=== PATIENT | female | born 1950 | race Caucasian/White ===

== ENCOUNTER 2017-04-23 22:52 | Emergency (ER) | payer MEDICARE, OTHER ==
[2017-04-23] MEDS ORDERED: methylPREDNISolone Sodium Succinate 125 MG/2 ML SDV ONE (22:56)
[2017-04-23] MEDS ORDERED: methylPREDNISolone Sodium Succinate 125 MG/2 ML SDV IVPUSH ONE (22:57)
[2017-04-23] MEDS ORDERED: diphenhydrAMINE 50 MG/ML SDV IVPUSH ONE (22:57)
[2017-04-23] MEDS ORDERED: Famotidine 20 MG/2 ML SDV IVPUSH ONE (22:58)
--- NOTE | 2017-04-23 23:36 | EDM.PDOC ---
ED HPI GENERAL MEDICAL PROBLEM - General Chief Complaint: Allergic Reaction Stated Complaint: Hives Time Seen by Provider: 04/23/17 23:05 Source of Information: Reports: Patient History Limitations: Reports: No Limitations - History of Present Illness INITIAL COMMENTS - FREE TEXT/NARRATIVE: 67 YO WF presents to ER with allergic rash with some mild difficulty swallowing. Pt reports she had 2 episodes in the last week which occurred after drinking crystal light. Pt denies any shortness of breath, tongue swelling, dizziness or palapatations. Onset: Today Onset Date: 04/21/17 Duration: Day(s): (3) Severity: Mild Worsens with: Reports: None Associated Symptoms: Reports: No Other Symptoms, Rash. Denies: Chest Pain, Cough, cough w sputum, Diaphoresis, Fever/Chills, Nausea/Vomiting, Shortness of Breath, Syncope - Related Data Allergies Allergy/AdvReac Type Severity Reaction Status Date / Time Sulfa (Sulfonamide Allergy Rash Verified 04/23/17 23:16 Antibiotics) sulfamethoxazole Allergy Rash Verified 04/23/17 23:16 [From Bactrim] Tetracyclines Allergy Difficulty Verified 04/23/17 23:16 Breathing trimethoprim [From Bactrim] Allergy Rash Verified 04/23/17 23:16 Home Meds: Home Meds Calcium Carbonate/Vitamin D3 [Os-Percy 500+D] 1 tab PO DAILY 07/26/15 [History] Diclofenac Sodium [Voltaren-XR] 100 mg PO DAILY 07/26/15 [History] Escitalopram [Lexapro] 20 mg PO DAILY 07/26/15 [History] Glucosamine/D3/Boswellia Janette [Osteo Bi-Flex Caplet] 1 tab PO DAILY 07/26/15 [ History] Metoprolol Tartrate [Lopressor] 25 mg PO BID PRN 07/26/15 [History] [place]-3 Fatty Acids [Fish Oil] 1,200 mg PO DAILY 07/26/15 [History] atorvaSTATin [Lipitor] 20 mg PO BEDTIME 07/26/15 [History] Cetirizine HCl [Zyrtec] 10 mg PO DAILY #30 tab.rapdis 04/23/17 [Rx] Famotidine [Pepcid] 20 mg PO BID #10 tablet 04/23/17 [Rx] Prednisone [IJD: predniSONE] 20 mg PO WITHBREAKFAST #10 tab 04/23/17 [Rx] Past Medical History HEENT History: Reports: Impaired Vision Gastrointestinal History: Reports: Cholelithiasis, GERD Genitourinary History: Reports: Other (See Below) Other Genitourinary History: cyst on right kidney Musculoskeletal History: Reports: Arthritis Psychiatric History: Reports: Depression Hematologic History: Reports: Anemia - Infectious Disease History Infectious Disease History: Reports: Chicken Pox, Measles, MRSA, Mumps, Rubella , Shingles - Past Surgical History HEENT Surgical History: Reports: Eye Surgery, Other (See Below) GI Surgical History: Reports: Appendectomy, Bariatric Procedure, Cholecystectomy Social & Family History - Tobacco Use Smoking Status *Q: Never Smoker - Recreational Drug Use Recreational Drug Use: No ED ROS ALLERGIC REACTION - Review of Systems Review Of Systems: See Below Constitutional: Reports: No Symptoms HEENT: Reports: Throat Pain Respiratory: Reports: No Symptoms Cardiovascular: Reports: No Symptoms Endocrine: Reports: No Symptoms GI/Abdominal: Reports: No Symptoms : Reports: No Symptoms Musculoskeletal: Reports: No Symptoms Skin: Reports: No Symptoms Neurological: Reports: No Symptoms Psychiatric: Reports: No Symptoms Hematologic/Lymphatic: Reports: No Symptoms Immunologic: Reports: No Symptoms ED EXAM GENERAL NO PERIP PULSE - Physical Exam Exam: See Below Exam Limited By: No Limitations General Appearance: Alert, WD/WN, No Apparent Distress Ears: Normal External Exam, Normal Canal, Hearing Grossly Normal, Normal TMs Nose: Normal Inspection, Normal Mucosa, No Blood Throat/Mouth: Normal Inspection, Normal Lips, Normal Teeth, Normal Gums, Normal Oropharynx, Normal Voice, No Airway Compromise Head: Atraumatic, Normocephalic Neck: Normal Inspection, Supple, Non-Tender, Full Range of Motion Respiratory/Chest: No Respiratory Distress, Lungs Clear, Normal Breath Sounds, No Accessory Muscle Use, Chest Non-Tender Cardiovascular: Normal Peripheral Pulses, Regular Rate, Rhythm, No Edema, No Gallop, No JVD, No Murmur, No Rub GI/Abdominal: Normal Bowel Sounds, Soft, Non-Tender, No Organomegaly, No Distention, No Abnormal Bruit, No Mass Back Exam: Normal Inspection, Full Range of Motion, NT Extremities: Normal Inspection, Normal Range of Motion, Non-Tender, Normal Capillary Refill, No Pedal Edema Neurological: Alert, Oriented, CN II-XII Intact, Normal Cognition, Normal Gait, Normal Reflexes, No Motor/Sensory Deficits Psychiatric: Normal Affect, Normal Mood Skin Exam: Warm, Dry, Intact, Normal Color, Rash (generalized urticarial rash) Lymphatic: No Adenopathy Course - Vital Signs Last Recorded V/S: Last Vital Signs Temp 36.1 C 04/23/17 23:10 Pulse 71 04/23/17 23:10 Resp 20 04/23/17 23:10 BP 122/59 L 04/23/17 23:10 Pulse Ox 98 04/23/17 23:10 - Orders/Labs/Meds Meds: Medications Discontinued Medications Generic Name Dose Route Start Last Admin Trade Name Neela PRN Reason Stop Dose Admin Diphenhydramine HCl 25 mg 04/23/17 22:57 04/23/17 23:02 Benadryl IVPUSH 04/23/17 22:58 25 mg ONETIME ONE Administration Famotidine 20 mg 04/23/17 22:58 04/23/17 23:05 Pepcid IVPUSH 04/23/17 22:59 20 mg ONETIME ONE Administration Methylprednisolone Sodium Succinate 125 mg 04/23/17 22:57 04/23/17 23:00 Solu-Medrol IVPUSH 04/23/17 22:58 125 mg ONETIME ONE Administration Methylprednisolone Sodium Succinate Confirm 04/23/17 22:56 04/23/17 23:02 Solu-Medrol Administered 04/23/17 22:57 Not Given Dose 125 mg .ROUTE .STK-MED ONE - Re-Assessments/Exams Free Text/Narrative Re-Assessment/Exam: 04/23/17 23:35 Pt reports rash fading, dysphagia resolved after solumedrol/pepcid/benadryl Departure - Departure Time of Disposition: 23:36 Disposition: Home, Self-Care 01 Condition: Good Clinical Impression: Allergic reaction Qualifiers: Encounter type: initial encounter Qualified Code(s): T78.40XA - Allergy, unspecified, initial encounter - Discharge Information Prescriptions: Cetirizine HCl [Zyrtec] 10 mg PO DAILY #30 tab.rapdis Famotidine [Pepcid] 20 mg PO BID #10 tablet Prednisone [IJD: predniSONE] 20 mg PO WITHBREAKFAST #10 tab Instructions: Allergies Referrals: Theron Monterroso MD [Primary Care Provider] - - Assessment/Plan Assessment:: 1. acute allergic reaction Plan: 1. discharge home 2. prednisone 60mg PO QD x 5 days 3. benadryl 50mg PO QHS 4. pepcid 20mg PO BID 5. zyrtec 10mg PO Qam
[2017-04-23 23:42] VITALS: BP 126/70
== END 2017-04-24 00:05 | disposition home or self-care (01) ==
LOC: KA.ED 22:52 → SUPCPDRO 22:52 → KA.ED 04-24 00:05
DX: L50.0 Allergic urticaria (principal); F32.9 Major depressive disorder, single episode, unspecified; Z86.2 Personal history of diseases of the blood and blood-forming organs and certain disorders involving the immune mechanism; Z79.899 Other long term (current) drug therapy; Z88.1 Allergy status to other antibiotic agents; Z88.2 Allergy status to sulfonamides
CPT/HCPCS: 96374; 96375; 99283; J1200; J2930; S0028

== ENCOUNTER 2017-12-01 13:42 | Emergency (ER) | payer MEDICARE, OTHER ==
[2017-12-01 14:15] VITALS: BP 114/66
[2017-12-01] MEDS: Lidocaine 1% 20 ML MDV ONE (14:16)
[2017-12-01] MEDS: Lidocaine 1% 10 ML MDV INJECT ONE (14:18)
--- NOTE | 2017-12-01 14:26 | EDM.PDOC ---
ED HPI GENERAL MEDICAL PROBLEM - General Chief Complaint: Upper Extremity Injury/Pain Stated Complaint: laceration to hand Time Seen by Provider: 12/01/17 14:00 Source of Information: Reports: Patient History Limitations: Reports: No Limitations - History of Present Illness INITIAL COMMENTS - FREE TEXT/NARRATIVE: 67 YO WF with 4cm laceration to palmar surface of left hand. Pt reports she accidentally cut her hand with a utility knife. Pt denies any loss of function to hand or fingers. Bleeding controlled. Pt had last tetanus 2 years ago. Onset: Today Onset Date: 12/01/17 Onset Time: 13:00 Location: Reports: Upper Extremity, Left Quality: Reports: Ache Severity: Mild Improves with: Reports: None Worsens with: Reports: None Associated Symptoms: Reports: No Other Symptoms Left Hand Pain Score (Numeric/FACES): 4 - Related Data Allergies Allergy/AdvReac Type Severity Reaction Status Date / Time Sulfa (Sulfonamide Allergy Rash Verified 12/01/17 13:50 Antibiotics) sulfamethoxazole Allergy Rash Verified 12/01/17 13:50 [From Bactrim] Tetracyclines Allergy Difficulty Verified 12/01/17 13:50 Breathing trimethoprim [From Bactrim] Allergy Rash Verified 12/01/17 13:50 Home Meds: Home Meds Calcium Carbonate/Vitamin D3 [Os-Percy 500+D] 1 tab PO DAILY 07/26/15 [History] Diclofenac Sodium [Voltaren-XR] 100 mg PO DAILY 07/26/15 [History] Glucosamine/D3/Boswellia Janette [Osteo Bi-Flex Caplet] 1 tab PO DAILY 07/26/15 [ History] Metoprolol Tartrate [Lopressor] 25 mg PO BID PRN 07/26/15 [History] [place]-3 Fatty Acids [Fish Oil] 1,200 mg PO DAILY 07/26/15 [History] atorvaSTATin [Lipitor] 20 mg PO DAILY 07/26/15 [History] Cephalexin [Keflex] 500 mg PO Q6HR #28 capsule 12/01/17 [Rx] Past Medical History HEENT History: Reports: Impaired Vision Cardiovascular History: Reports: Arrhythmia, Other (See Below) Other Cardiovascular History: prn po med for irr HR Gastrointestinal History: Reports: Cholelithiasis, GERD Genitourinary History: Reports: Other (See Below) Other Genitourinary History: cyst on right kidney Musculoskeletal History: Reports: Arthritis Psychiatric History: Reports: Depression Hematologic History: Reports: Anemia - Infectious Disease History Infectious Disease History: Reports: Chicken Pox, Measles, MRSA, Mumps, Rubella , Shingles - Past Surgical History HEENT Surgical History: Reports: Eye Surgery, Other (See Below) GI Surgical History: Reports: Appendectomy, Bariatric Procedure, Cholecystectomy Social & Family History - Caffeine Use Caffeine Use: Reports: None Review of Systems - Review of Systems Review Of Systems: See Below Constitutional: Reports: No Symptoms Eyes: Reports: No Symptoms Ears: Reports: No Symptoms Nose: Reports: No Symptoms Mouth/Throat: Reports: No Symptoms Respiratory: Reports: No Symptoms Cardiovascular: Reports: No Symptoms GI/Abdominal: Reports: No Symptoms Genitourinary: Reports: No Symptoms Musculoskeletal: Reports: No Symptoms Skin: Reports: Wound (4cm laceration to palmar surface of left hand) Neurological: Reports: No Symptoms Psychiatric: Reports: No Symptoms ED EXAM, GENERAL - Physical Exam Exam: See Below Exam Limited By: No Limitations General Appearance: Alert, WD/WN, No Apparent Distress Head: Atraumatic, Normocephalic Neck: Normal Inspection, Supple, Non-Tender, Full Range of Motion Respiratory/Chest: No Respiratory Distress, Lungs Clear, Normal Breath Sounds, No Accessory Muscle Use, Chest Non-Tender Cardiovascular: Normal Peripheral Pulses, Regular Rate, Rhythm, No Edema, No Gallop, No JVD, No Murmur, No Rub Back Exam: Normal Inspection, Full Range of Motion, NT Extremities: Normal Inspection, Normal Range of Motion, Non-Tender, Normal Capillary Refill, No Pedal Edema Neurological: Alert, Oriented, CN II-XII Intact, Normal Cognition, Normal Gait, Normal Reflexes, No Motor/Sensory Deficits Psychiatric: Normal Affect, Normal Mood Skin Exam: Wound/Incision (4cm laceration to palmar surface of left hand) Lymphatic: No Adenopathy ED TRAUMA EXTREMITY PROCEDURES - Laceration/Wound Repair Left Groin Lac/Wound Length In cm: 4 Appearance: Superficial Distal NVT: Neuro & Vascular Intact Anesthetic Type: Local Local Anesthesia - Lidocaine (Xylocaine): 1% Plain Local Anesthetic Volume: 1cc Skin Prep: Providone-Iodine (Betadine), Saline, Sterile Drape Closed With: Sutures Suture Size: 4-0 # of Sutures: 3 Sterile Dressing Applied: Provider Tetanus Status Addressed: Yes Complications: No Course - Vital Signs Last Recorded V/S: Last Vital Signs Temp 35.9 C 12/01/17 13:59 Pulse 69 12/01/17 13:59 Resp 18 12/01/17 13:59 BP 114/66 12/01/17 13:59 Pulse Ox Departure - Departure Time of Disposition: 14:30 Disposition: Home, Self-Care 01 Condition: Good Clinical Impression: Laceration of left hand Qualifiers: Encounter type: initial encounter Foreign body presence: without foreign body Qualified Code(s): S61.412A - Laceration without foreign body of left hand, initial encounter - Discharge Information Prescriptions: Cephalexin [Keflex] 500 mg PO Q6HR #28 capsule Instructions: Laceration Care, Adult, [id number], Stitches, Caitlin, or Adhesive Wound Closure Referrals: Theron Monterroso MD [Primary Care Provider] - Additional Instructions: 1. discharge home 2. wound care instructions given 3. remove sutures in 10-14 days 4. keflex 500mg PO Q6 x 7 days for prophylaxsis 5. return to ER for worsening symptoms - Assessment/Plan Assessment:: 1. 4cm laceration to palmar surface of left hand Plan: 1. discharge home 2. wound care instructions given 3. remove sutures in 10-14 days 4. keflex 500mg PO Q6 x 7 days for prophylaxsis 5. return to ER for worsening symptoms
[2017-12-01] MEDS: Lidocaine 1% 20 ML MDV INJECT ONE (15:18)
== END 2017-12-01 14:37 | disposition home or self-care (01) ==
LOC: KA.ED 13:42
DX: S61.412A Laceration without foreign body of left hand, initial encounter (principal); W26.0XXA Contact with knife, initial encounter
CPT/HCPCS: 12002; 99283

== ENCOUNTER 2018-06-26 00:55 | Emergency (ER) | payer MEDICARE, OTHER ==
[2018-06-26] MEDS: methylPREDNISolone Sodium Succinate 125 MG/2 ML SDV IVPUSH ONE (01:22)
--- NOTE | 2018-06-26 01:39 | EDM.PDOC ---
ED HPI GENERAL MEDICAL PROBLEM - General Chief Complaint: Allergic Reaction Stated Complaint: allergic reaction Time Seen by Provider: 06/26/18 01:21 Source of Information: Reports: Patient, Significant Other History Limitations: Reports: No Limitations - History of Present Illness INITIAL COMMENTS - FREE TEXT/NARRATIVE: Patient presents with apparent allergic reaction: redness and itching of both arms, abdomen, lateral torso, left ear. THis started 6 hours ago and she took Benadryl 50 mg twice before coming to ER. It is still slowly spreading. She denies any throat swelling or dyspnea but her lips feel puffy. She had a similar episode in Apr 2017 and came to ER and was given Solumedrol and Pepcid ( from ER notes). She says that the redness took a couple days to completely resolve then. She has never identified the cause and can't think of anything new she might have eaten or anything else that could have caused this. - Related Data Allergies Allergy/AdvReac Type Severity Reaction Status Date / Time Sulfa (Sulfonamide Allergy Rash Verified 12/01/17 13:50 Antibiotics) sulfamethoxazole Allergy Rash Verified 12/01/17 13:50 [From Bactrim] Tetracyclines Allergy Difficulty Verified 12/01/17 13:50 Breathing trimethoprim [From Bactrim] Allergy Rash Verified 12/01/17 13:50 Home Meds: Home Meds Calcium Carbonate/Vitamin D3 [Os-Percy 500+D] 1 tab PO DAILY 07/26/15 [History] Diclofenac Sodium [Voltaren-XR] 100 mg PO DAILY 07/26/15 [History] Glucosamine/D3/Boswellia Janette [Osteo Bi-Flex Caplet] 1 tab PO DAILY 07/26/15 [ History] Metoprolol Tartrate [Lopressor] 25 mg PO BID PRN 07/26/15 [History] [place]-3 Fatty Acids [Fish Oil] 1,200 mg PO DAILY 07/26/15 [History] atorvaSTATin [Lipitor] 20 mg PO DAILY 07/26/15 [History] Cephalexin [Keflex] 500 mg PO Q6HR #28 capsule 12/01/17 [Rx] Past Medical History HEENT History: Reports: Impaired Vision Cardiovascular History: Reports: Arrhythmia, Other (See Below) Other Cardiovascular History: prn po med for irr HR Gastrointestinal History: Reports: Cholelithiasis, GERD Genitourinary History: Reports: Other (See Below) Other Genitourinary History: cyst on right kidney Musculoskeletal History: Reports: Arthritis Psychiatric History: Reports: Depression Hematologic History: Reports: Anemia - Infectious Disease History Infectious Disease History: Reports: Chicken Pox, Measles, MRSA, Mumps, Rubella , Shingles - Past Surgical History HEENT Surgical History: Reports: Eye Surgery, Other (See Below) GI Surgical History: Reports: Appendectomy, Bariatric Procedure, Cholecystectomy Social & Family History - Family History Family Medical History: Noncontributory - Caffeine Use Caffeine Use: Reports: None ED ROS ALLERGIC REACTION - Review of Systems Review Of Systems: See Below Constitutional: Denies: Fever, Chills, Malaise, Weakness HEENT: Denies: Throat Pain, Throat Swelling, Vision Change Respiratory: Denies: Shortness of Breath, Cough Cardiovascular: Denies: Chest Pain, Edema, Lightheadedness, Syncope Endocrine: Denies: Fatigue (even after all the benadryl) GI/Abdominal: Reports: Nausea. Denies: Abdominal Pain, Difficulty Swallowing, Vomiting : Reports: No Symptoms Musculoskeletal: Reports: No Symptoms Skin: Reports: Pruritis, Erythema. Denies: Cyanosis, Jaundice, Mottled, Pallor , Diaphoresis Neurological: Denies: Confusion, Dizziness, Headache, Seizure, Syncope, Weakness Psychiatric: Denies: Agitation, Anxiety, Confusion Immunologic: Denies: Anaphylaxis ED EXAM GENERAL NO PERIP PULSE - Physical Exam Exam: See Below Exam Limited By: No Limitations General Appearance: Alert, WD/WN, No Apparent Distress Eye Exam: Bilateral Eye: EOMI, Normal Inspection, PERRL Ears: Hearing Grossly Normal, Other (left external is erythematous) Nose: Normal Inspection, No Blood Throat/Mouth: Normal Teeth, Normal Gums, Normal Oropharynx, Normal Voice, No Airway Compromise, Other (subjective puffiness of lips). No: Perioral Cyanosis Head: Atraumatic, Normocephalic Neck: Normal Inspection, Full Range of Motion Respiratory/Chest: No Respiratory Distress, Lungs Clear, Normal Breath Sounds, No Accessory Muscle Use Cardiovascular: Regular Rate, Rhythm, No Murmur GI/Abdominal: No Distention Neurological: Alert, Oriented, Normal Cognition, No Motor/Sensory Deficits Psychiatric: Normal Affect, Normal Mood Skin Exam: Warm, Dry, Intact, Rash (inner prox forearms, abdomen, mid lumbar; legs, neck and face okay) Course - Orders/Labs/Meds Orders: Active Orders 24 hr Category Date Time Status Famotidine [Pepcid] Med 06/26/18 01:28 Once 20 mg IVPUSH ONETIME ONE Medication Orders Famotidine (Pepcid) 20 mg IVPUSH ONETIME ONE Stop: 06/26/18 01:29 Meds: Medications Generic Name Dose Route Start Last Admin Trade Name Freq PRN Reason Stop Dose Admin Famotidine 20 mg 06/26/18 01:28 Pepcid IVPUSH 06/26/18 01:29 ONETIME ONE Discontinued Medications Generic Name Dose Route Start Last Admin Trade Name Freq PRN Reason Stop Dose Admin Epinephrine HCl 0.5 mg 06/26/18 01:11 Adrenalin SUBCUT 06/26/18 01:12 ONETIME ONE Methylprednisolone Sodium Succinate 125 mg 06/26/18 01:10 06/26/18 01:22 Solu-Medrol IVPUSH 06/26/18 01:11 125 mg ONETIME ONE Administration - Re-Assessments/Exams Free Text/Narrative Re-Assessment/Exam: 06/26/18 02:20 The rash and itch have subsided noticeably since the Solu-medrol and Pepcid were given. Patient would like to go home. will drive. We discussed findings and expectations along with treatment plan. Pt discharged to home in stable condition. Departure - Departure Time of Disposition: 02:15 Disposition: Home, Self-Care 01 Condition: Good Clinical Impression: Allergic reaction, urticaria - Discharge Information Additional Instructions: 1. Drink 8 cups of water a day. 2. Take the prednisone as directed. 3. Follow up with your PCP if problems persist or worsen. 4. Return to ER if needed. - My Orders Last 24 Hours: My Active Orders 06/26/18 01:28 Famotidine [Pepcid] 20 mg IVPUSH ONETIME ONE - Assessment/Plan Last 24 Hours: My Active Orders 06/26/18 01:28 Famotidine [Pepcid] 20 mg IVPUSH ONETIME ONE
[2018-06-26] MEDS: Famotidine 20 MG/2 ML SDV IVPUSH ONE (01:40)
[2018-06-26] MEDS: EPINEPHrine 1 MG/ML SDV SUBCUT ONE (02:05)
[2018-06-26 02:42] VITALS: BP 109/60
== END 2018-06-26 02:25 | disposition home or self-care (01) ==
LOC: KA.ED 00:55
DX: L50.0 Allergic urticaria (principal); F32.9 Major depressive disorder, single episode, unspecified; Z79.899 Other long term (current) drug therapy; Z88.2 Allergy status to sulfonamides; Z88.1 Allergy status to other antibiotic agents
CPT/HCPCS: 96374; 96375; 99283; J2930; J3490

== ENCOUNTER 2019-04-02 | Emergency (ER) | payer MEDICARE, OTHER ==
[2019-04-02] MEDS ORDERED: Famotidine 20 MG/2 ML SDV IVPUSH ONE (00:02)
[2019-04-02] MEDS ORDERED: methylPREDNISolone Sodium Succinate 125 MG/2 ML SDV IVPUSH ONE (00:02)
[2019-04-02] MEDS ORDERED: diphenhydrAMINE 50 MG/ML SDV IVPUSH ONE (00:02)
[2019-04-02] MEDS: Sodium Chloride 0.9% 10 ML Syringe FLUSH PRN ×3 (00:05→00:15)
--- NOTE | 2019-04-02 00:08 | EDM.PDOC ---
ED HPI GENERAL MEDICAL PROBLEM - General Chief Complaint: Allergic Reaction Stated Complaint: allergic reaction Time Seen by Provider: 04/02/19 00:02 Source of Information: Reports: Patient History Limitations: Reports: No Limitations - History of Present Illness INITIAL COMMENTS - FREE TEXT/NARRATIVE: 69 YO WF presents to ER with sudden onset of rash with sore throat and lightheadedness which began at 10pm tonight. Pt with PMH of idiopathic urticaria. Pt denies any new medication/food or environmental exposures. Pt denies shortness of breath, chest pain, palpitations or diaphoresis. Pt afebrile without URI symptoms. Pt denies dysphagia, nausea/vomiting or syncope. Pt has had similar episodes in the past but denies seeing an jewelry racker or specialist for her recurrent symptoms. Onset Date: 04/01/19 Onset Time: 22:00 Location: Reports: Chest, Back, Upper Extremity, Left, Upper Extremity, Right Quality: Reports: Other (itchy) Severity: Mild Improves with: Reports: None Worsens with: Reports: None Associated Symptoms: Reports: No Other Symptoms, Shortness of Breath - Related Data Allergies Allergy/AdvReac Type Severity Reaction Status Date / Time Sulfa (Sulfonamide Allergy Rash Verified 04/02/19 00:21 Antibiotics) sulfamethoxazole Allergy Rash Verified 04/02/19 00:21 [From Bactrim] Tetracyclines Allergy Difficulty Verified 04/02/19 00:21 Breathing trimethoprim [From Bactrim] Allergy Rash Verified 04/02/19 00:21 Home Meds: Home Meds Calcium Carbonate/Vitamin D3 [Os-Percy 500+D] 1 tab PO DAILY 07/26/15 [History] Diclofenac Sodium [Voltaren-XR] 100 mg PO DAILY 07/26/15 [History] Glucosamine/D3/Boswellia Janette [Osteo Bi-Flex Caplet] 1 tab PO DAILY 07/26/15 [ History] Metoprolol Tartrate [Lopressor] 25 mg PO BID PRN 07/26/15 [History] [place]-3 Fatty Acids [Fish Oil] 1,200 mg PO DAILY 07/26/15 [History] atorvaSTATin [Lipitor] 20 mg PO DAILY 07/26/15 [History] Venlafaxine HCl [Venlafaxine ER] 75 mg PO DAILY 06/26/18 [History] Vit A/Vit C/Vit E/Zinc/Copper [Preservision Areds Softgel] 1 tab PO DAILY [History] Famotidine [Pepcid] 20 mg PO BID #20 tab 04/02/19 [Rx] predniSONE [Prednisone] 50 mg PO DAILY #5 tablet 04/02/19 [Rx] Past Medical History HEENT History: Reports: Impaired Vision Cardiovascular History: Reports: Arrhythmia, Other (See Below) Other Cardiovascular History: prn po med for irr HR Gastrointestinal History: Reports: Cholelithiasis, GERD Genitourinary History: Reports: Other (See Below) Other Genitourinary History: cyst on right kidney Musculoskeletal History: Reports: Arthritis Psychiatric History: Reports: Depression Hematologic History: Reports: Anemia - Infectious Disease History Infectious Disease History: Reports: Chicken Pox, Measles, MRSA, Mumps, Rubella , Shingles - Past Surgical History HEENT Surgical History: Reports: Eye Surgery, Other (See Below) GI Surgical History: Reports: Appendectomy, Bariatric Procedure, Cholecystectomy Social & Family History - Family History Family Medical History: Noncontributory - Caffeine Use Caffeine Use: Reports: None ED ROS ALLERGIC REACTION - Review of Systems Review Of Systems: See Below Constitutional: Reports: No Symptoms HEENT: Reports: No Symptoms Respiratory: Reports: No Symptoms Cardiovascular: Reports: No Symptoms Endocrine: Reports: No Symptoms GI/Abdominal: Reports: No Symptoms : Reports: No Symptoms Musculoskeletal: Reports: No Symptoms Skin: Reports: Rash Neurological: Reports: Dizziness Psychiatric: Reports: No Symptoms Hematologic/Lymphatic: Reports: No Symptoms Immunologic: Reports: Seasonal Allergy ED EXAM GENERAL NO PERIP PULSE - Physical Exam Exam: See Below Exam Limited By: No Limitations General Appearance: Alert, WD/WN, No Apparent Distress Nose: Normal Inspection, Normal Mucosa, No Blood Throat/Mouth: Normal Inspection, Normal Lips, Normal Teeth, Normal Gums, Normal Oropharynx, Normal Voice, No Airway Compromise Head: Atraumatic, Normocephalic Neck: Normal Inspection, Supple, Non-Tender, Full Range of Motion Respiratory/Chest: No Respiratory Distress, Lungs Clear, Normal Breath Sounds, No Accessory Muscle Use, Chest Non-Tender Cardiovascular: Normal Peripheral Pulses, Regular Rate, Rhythm, No Edema, No Gallop, No JVD, No Murmur, No Rub GI/Abdominal: Normal Bowel Sounds, Soft, Non-Tender, No Organomegaly, No Distention, No Abnormal Bruit, No Mass Back Exam: Normal Inspection, Full Range of Motion, NT Extremities: Normal Inspection, Normal Range of Motion, Non-Tender, Normal Capillary Refill, No Pedal Edema Neurological: Alert, Oriented, CN II-XII Intact, Normal Cognition, Normal Gait, Normal Reflexes, No Motor/Sensory Deficits Psychiatric: Normal Affect, Normal Mood Skin Exam: Rash (macular-papular rash affecting the chest/back and upper extremities. ) Lymphatic: No Adenopathy Course - Vital Signs Last Recorded V/S: Last Vital Signs Temp 36.1 C 04/02/19 00:10 Pulse 75 04/02/19 00:10 Resp 16 04/02/19 00:10 BP 127/71 04/02/19 00:10 Pulse Ox 99 04/02/19 00:10 - Orders/Labs/Meds Orders: Active Orders 24 hr Category Date Time Status Saline Lock Insert [OM.PC] Routine Oth 04/02/19 00:05 Ordered Meds: Medications Discontinued Medications Generic Name Dose Route Start Last Admin Trade Name Wesq PRN Reason Stop Dose Admin Diphenhydramine HCl 25 mg 04/02/19 00:02 04/02/19 00:10 Benadryl IVPUSH 04/02/19 00:03 25 mg ONETIME ONE Administration Famotidine 20 mg 04/02/19 00:02 04/02/19 00:15 Pepcid IVPUSH 04/02/19 00:03 20 mg ONETIME ONE Administration Methylprednisolone Sodium Succinate 125 mg 04/02/19 00:02 04/02/19 00:08 Solu-Medrol IVPUSH 04/02/19 00:03 125 mg ONETIME ONE Administration Sodium Chloride 10 ml 04/02/19 00:05 04/02/19 00:15 Saline Flush FLUSH 10 ml Q8HR PRN Administration keep vein open Departure - Departure Time of Disposition: 11:00 Disposition: Home, Self-Care 01 Condition: Good Clinical Impression: Allergic reaction Qualifiers: Encounter type: initial encounter Qualified Code(s): T78.40XA - Allergy, unspecified, initial encounter - Discharge Information Prescriptions: Famotidine [Pepcid] 20 mg PO BID #20 tab predniSONE [Prednisone] 50 mg PO DAILY #5 tablet Instructions: Allergies, Adult, [id number], Allergy Skin Testing Referrals: Debbie Joyce PA-C [Primary Care Provider] - Forms: ED Department Discharge Additional Instructions: 1. discharge home 2. Benadryl 50mg every 6 hours x 5 days 3. prednisone 50mg everyday x 5 days 4. pepcid 20mg twice per day x 10 days 5. follow up with PCP and consider electrician apprentice for further evaluation and treatment 6. return to ER for worsening symptoms - My Orders Last 24 Hours: My Active Orders 04/02/19 00:05 Saline Lock Insert [OM.PC] Routine - Assessment/Plan Last 24 Hours: My Active Orders 04/02/19 00:05 Saline Lock Insert [OM.PC] Routine Assessment:: 1. acute allergic reaction Plan: 1. discharge home 2. Benadryl 50mg every 6 hours x 5 days 3. prednisone 50mg everyday x 5 days 4. pepcid 20mg twice per day x 10 days 5. follow up with PCP and consider electrician apprentice for further evaluation and treatment 6. return to ER for worsening symptoms
[2019-04-02 00:25] VITALS: BP 127/71; PULSE 75
== END 2019-04-02 00:50 | disposition home or self-care (01) ==
LOC: KA.ED
DX: T78.40XA Allergy, unspecified, initial encounter (principal); F32.9 Major depressive disorder, single episode, unspecified; Z79.899 Other long term (current) drug therapy; Z88.1 Allergy status to other antibiotic agents; Z88.2 Allergy status to sulfonamides
CPT/HCPCS: 96374; 96375; 99284-25; J1200; J2930; J3490

== ENCOUNTER 2019-07-31 23:46 | Emergency (ER) | payer MEDICARE, OTHER ==
[2019-07-31 23:51] VITALS: PULSE 84
[2019-08-01] MEDS ORDERED: Sodium Chloride 0.9% 10 ML Syringe FLUSH PRN (00:08)
[2019-08-01] MEDS ORDERED: Famotidine 20 MG/2 ML SDV IVPUSH ONE (00:17)
[2019-08-01] MEDS ORDERED: methylPREDNISolone Sodium Succinate 125 MG/2 ML SDV IVPUSH ONE (00:17)
[2019-08-01] MEDS ORDERED: diphenhydrAMINE 50 MG/ML SDV IVPUSH ONE (00:17)
--- NOTE | 2019-08-01 00:19 | EDM.PDOC ---
ED HPI GENERAL MEDICAL PROBLEM - General Chief Complaint: Allergic Reaction Stated Complaint: Rash Time Seen by Provider: 08/01/19 00:05 Source of Information: Reports: Patient History Limitations: Reports: No Limitations - History of Present Illness INITIAL COMMENTS - FREE TEXT/NARRATIVE: 69 YO WF presents to ER complaining of generalized rash which began at 9pm. Pt reports history of similar in the past. Pt states she has been treated for the same on 3 other occasions and been seen by an retail visual merchandiser who was unable to tell her the cause or offending agent. Pt denies shortness of breath or difficulty swallowing. Pt states she was getting ready for bed when the rash started. She describes her rash as "hives" located in the folds of her arms, back of legs, under breasts, in groin and around her neck but has spread to her torso and back. Pt reports she took Benadryl at home without improvement. Pt denies dizziness or diaphoresis. No new food contacts, no new soaps or detergents or lotions, perfumes. Pt reports she started amoxicillin last week for a tooth infection. Location: Reports: Generalized Quality: Reports: Other (itchy) Improves with: Reports: None Worsens with: Reports: None Associated Symptoms: Reports: No Other Symptoms, Rash. Denies: Chest Pain, Diaphoresis, Fever/Chills, Nausea/Vomiting, Shortness of Breath Generalized Pain Score (Numeric/FACES): 5 - Related Data Allergies Allergy/AdvReac Type Severity Reaction Status Date / Time Sulfa (Sulfonamide Allergy Rash Verified 08/01/19 00:08 Antibiotics) sulfamethoxazole Allergy Rash Verified 08/01/19 00:08 [From Bactrim] Tetracyclines Allergy Difficulty Verified 08/01/19 00:08 Breathing trimethoprim [From Bactrim] Allergy Rash Verified 08/01/19 00:08 Home Meds: Home Meds Calcium Carbonate/Vitamin D3 [Os-Percy 500+D] 1 tab PO DAILY 07/26/15 [History] Diclofenac Sodium [Voltaren-XR] 100 mg PO DAILY 07/26/15 [History] Glucosamine/D3/Boswellia Janette [Osteo Bi-Flex Caplet] 1 tab PO DAILY 07/26/15 [ History] Metoprolol Tartrate [Lopressor] 25 mg PO BID PRN 07/26/15 [History] [place]-3 Fatty Acids [Fish Oil] 1,200 mg PO DAILY 07/26/15 [History] atorvaSTATin [Lipitor] 20 mg PO DAILY 07/26/15 [History] Venlafaxine HCl [Venlafaxine ER] 75 mg PO DAILY 06/26/18 [History] Vit A/Vit C/Vit E/Zinc/Copper [Preservision Areds Softgel] 1 tab PO DAILY [History] Famotidine [Pepcid] 20 mg PO BID #20 tab 04/02/19 [Rx] predniSONE [Prednisone] 50 mg PO DAILY #5 tablet 04/02/19 [Rx] Famotidine [Pepcid] 20 mg PO BID #20 tab 08/01/19 [Rx] predniSONE [Prednisone] 20 mg PO DAILY #15 tablet 08/01/19 [Rx] Past Medical History HEENT History: Reports: Impaired Vision Cardiovascular History: Reports: Arrhythmia, Other (See Below) Other Cardiovascular History: prn po med for irr HR Gastrointestinal History: Reports: Cholelithiasis, GERD Genitourinary History: Reports: Other (See Below) Other Genitourinary History: cyst on right kidney Musculoskeletal History: Reports: Arthritis Psychiatric History: Reports: Depression Hematologic History: Reports: Anemia - Infectious Disease History Infectious Disease History: Reports: Chicken Pox, Measles, MRSA, Mumps, Rubella , Shingles - Past Surgical History HEENT Surgical History: Reports: Eye Surgery, Other (See Below) GI Surgical History: Reports: Appendectomy, Bariatric Procedure, Cholecystectomy Social & Family History - Family History Family Medical History: Noncontributory - Tobacco Use Smoking Status *Q: Never Smoker Second Hand Smoke Exposure: No - Caffeine Use Caffeine Use: Reports: Coffee - Recreational Drug Use Recreational Drug Use: No ED ROS ALLERGIC REACTION - Review of Systems Review Of Systems: See Below Constitutional: Reports: No Symptoms HEENT: Reports: No Symptoms Respiratory: Reports: No Symptoms Cardiovascular: Reports: No Symptoms Endocrine: Reports: No Symptoms GI/Abdominal: Reports: No Symptoms : Reports: No Symptoms Musculoskeletal: Reports: No Symptoms Skin: Reports: Rash Neurological: Reports: No Symptoms Psychiatric: Reports: Anxiety Hematologic/Lymphatic: Reports: No Symptoms Immunologic: Reports: No Symptoms ED EXAM GENERAL NO PERIP PULSE - Physical Exam Exam: See Below Exam Limited By: No Limitations General Appearance: Alert, WD/WN, No Apparent Distress Eye Exam: Bilateral Eye: PERRL Throat/Mouth: Normal Inspection, Normal Lips, Normal Teeth, Normal Gums, Normal Oropharynx, Normal Voice, No Airway Compromise Head: Atraumatic, Normocephalic Neck: Normal Inspection, Supple, Non-Tender, Full Range of Motion Respiratory/Chest: No Respiratory Distress, Lungs Clear, Normal Breath Sounds, No Accessory Muscle Use, Chest Non-Tender Cardiovascular: Normal Peripheral Pulses, Regular Rate, Rhythm, No Edema, No Gallop, No JVD, No Murmur, No Rub GI/Abdominal: Normal Bowel Sounds, Soft, Non-Tender, No Organomegaly, No Distention, No Abnormal Bruit, No Mass Back Exam: Normal Inspection, Full Range of Motion, NT Extremities: Normal Inspection, Normal Range of Motion, Non-Tender, Normal Capillary Refill, No Pedal Edema Neurological: Alert, Oriented, CN II-XII Intact, Normal Cognition, Normal Gait, Normal Reflexes, No Motor/Sensory Deficits Psychiatric: Normal Affect, Normal Mood Skin Exam: Warm, Dry, Intact, Rash (maculoapapular rash- generalized) Lymphatic: No Adenopathy Course - Vital Signs Last Recorded V/S: Last Vital Signs Temp 36.1 C 07/31/19 23:47 Pulse 84 07/31/19 23:47 Resp 18 07/31/19 23:47 BP 147/80 H 07/31/19 23:47 Pulse Ox 97 07/31/19 23:47 - Orders/Labs/Meds Orders: Active Orders 24 hr Category Date Time Status Peripheral IV Care [RC] . DIRECTED Care 08/01/19 00:09 Active Sodium Chloride 0.9% [Saline Flush] Med 08/01/19 00:08 Active 10 ml FLUSH Q8HR PRN Peripheral IV Insertion Adult [OM.PC] Routine Oth 08/01/19 00:08 Ordered Medication Orders Sodium Chloride (Saline Flush) 10 ml FLUSH Q8HR PRN PRN Reason: keep vein open Meds: Medications Generic Name Dose Route Start Last Admin Trade Name Freq PRN Reason Stop Dose Admin Sodium Chloride 10 ml 08/01/19 00:08 Saline Flush FLUSH Q8HR PRN keep vein open Discontinued Medications Generic Name Dose Route Start Last Admin Trade Name Freq PRN Reason Stop Dose Admin Diphenhydramine HCl 25 mg 08/01/19 00:17 Benadryl IVPUSH 08/01/19 00:18 ONETIME ONE Famotidine 20 mg 08/01/19 00:17 Pepcid IVPUSH 08/01/19 00:18 ONETIME ONE Methylprednisolone Sodium Succinate 125 mg 08/01/19 00:17 Solu-Medrol IVPUSH 08/01/19 00:18 ONETIME ONE - Radiology Interpretation Free Text/Narrative:: Pt reports she is feeling better, less itchy and the rash is fading. Pt still denies shortness of breath, lightheadedness, chest tightness, nausea/vomiting or difficulty swallowing. Departure - Departure Time of Disposition: 00:48 Disposition: Home, Self-Care 01 Condition: Good Clinical Impression: Allergic reaction Qualifiers: Encounter type: subsequent encounter Qualified Code(s): T78.40XD - Allergy, unspecified, subsequent encounter - Discharge Information Prescriptions: Famotidine [Pepcid] 20 mg PO BID #20 tab predniSONE [Prednisone] 20 mg PO DAILY #15 tablet Instructions: Allergies, Adult, [id number] Referrals: Theron Monterroso MD [Physician] - Forms: ED Department Discharge Additional Instructions: 1. discharge home 2. Benadryl 50mg every 6 hours 3. prednisone 60mg every day x 5 days 4. Pepcid 20mg every day x 5 days 5. stop amoxicillin 6. follow up with PCP next week for recheck 7. return to ER for worsening symptoms Sepsis Event Note - Evaluation Sepsis Screening Result: No Definite Risk - Focused Exam Vital Signs: Vital Signs Temp Pulse Resp BP Pulse Ox 07/31/19 23:47 36.1 C 84 18 147/80 H 97 Date Exam was Performed: 08/01/19 Time Exam was Performed: 00:24 - My Orders Last 24 Hours: My Active Orders 08/01/19 00:08 Sodium Chloride 0.9% [Saline Flush] 10 ml FLUSH Q8HR PRN Peripheral IV Insertion Adult [OM.PC] Routine 08/01/19 00:09 Peripheral IV Care [RC] . DIRECTED - Assessment/Plan Last 24 Hours: My Active Orders 08/01/19 00:08 Sodium Chloride 0.9% [Saline Flush] 10 ml FLUSH Q8HR PRN Peripheral IV Insertion Adult [OM.PC] Routine 08/01/19 00:09 Peripheral IV Care [RC] . DIRECTED Assessment:: 1. Allergic reaction- improved Plan: 1. discharge home 2. Benadryl 50mg every 6 hours 3. prednisone 60mg every day x 5 days 4. Pepcid 20mg every day x 5 days 5. stop amoxicillin 6. follow up with PCP next week for recheck 7. return to ER for worsening symptoms
[2019-08-01] MEDS ORDERED: Famotidine 20 MG Tab PO ONE (00:35)
[2019-08-01] MEDS ORDERED: predniSONE 20 MG Tab PO ONE (00:35)
[2019-08-01 01:07] VITALS: BP 142/76
== END 2019-08-01 01:00 | disposition home or self-care (01) ==
LOC: KA.ED 23:46
DX: T78.40XA Allergy, unspecified, initial encounter (principal); F32.9 Major depressive disorder, single episode, unspecified; Z88.2 Allergy status to sulfonamides; Z88.1 Allergy status to other antibiotic agents; Z79.899 Other long term (current) drug therapy
CPT/HCPCS: 96374; 96375; 99282; 99283; A9270; J1200; J2930; J3490

== ENCOUNTER 2020-05-04 15:35 | Observation (INO) | payer MEDICARE, OTHER ==
[2020-05-04] MEDS ORDERED: Sodium Chloride 0.9% 10 ML Syringe FLUSH PRN (15:49)
[2020-05-04] MEDS ORDERED: Sodium Chloride 0.9% 1,000 ML IV ONE (15:49)
--- NOTE | 2020-05-04 15:51 | EDM.PDOC ---
ED HPI GENERAL MEDICAL PROBLEM - General Chief Complaint: Neurological Problem Stated Complaint: S/P BACK PAIN Time Seen by Provider: 05/04/20 15:50 Source of Information: Reports: Patient, Family History Limitations: Reports: Altered Mental Status - History of Present Illness INITIAL COMMENTS - FREE TEXT/NARRATIVE: 70 YO WF PRESENTS TO ER BY PRIVATE CAR WITH CONFUSION WHICH BEGAN EARLIER TODAY. PER PT HAD SPINAL FUSION ON 04/27/2020 AND HAS BEEN HAVING A LOT OF PAIN SINCE HER PROCEDURE. PT WAS SENT HOME ON OXYCODONE/TIZANIDINE FOR PAIN CONTROL. PT HAS BEEN HAVING DIFFICULTY WITH BOWEL MOVEMENTS OVER THE LAST 3 DAYS. PT DENIES HEADACHE OR NECK PAIN. PT WITHOUT FEVER/CHILLS, NO NAUSEA/VOMITING, NO CHEST PAIN OR SHORTNESS OF BREATH. PT ABLE TO AMBULATE SLOWLY FROM CAR TO STRETCHER. Onset: Today Location: Reports: Generalized Severity: Mild Improves with: Reports: None Worsens with: Reports: None Associated Symptoms: Reports: Confusion. Denies: Chest Pain, Cough, cough w sputum, Fever/Chills, Headaches, Nausea/Vomiting, Shortness of Breath Lower Back Pain Score (Numeric/FACES): 10 - Related Data Allergies Allergy/AdvReac Type Severity Reaction Status Date / Time Sulfa (Sulfonamide Allergy Rash Verified 05/04/20 16:16 Antibiotics) sulfamethoxazole Allergy Rash Verified 05/04/20 16:16 [From Bactrim] Tetracyclines Allergy Difficulty Verified 05/04/20 16:16 Breathing trimethoprim [From Bactrim] Allergy Rash Verified 05/04/20 16:16 Home Meds: Home Meds Metoprolol Tartrate [Lopressor] 25 mg PO BID PRN 07/26/15 [History] atorvaSTATin [Lipitor] 10 mg PO DAILY 07/26/15 [History] Venlafaxine HCl [Venlafaxine ER] 75 mg PO DAILY 06/26/18 [History] Acetaminophen [Tylenol Arthritis Pain] 650 mg PO Q6H PRN 05/04/20 [History] Ascorbic Acid [C-500] 500 mg PO DAILY 05/04/20 [History] Cholecalciferol (Vitamin D3) [Vitamin D3] 2,000 unit PO DAILY 05/04/20 [History] Cyanocobalamin (Vitamin B-12) [Vitamin B-12] 1,000 mcg IM ASDIRECTED 05/04/20 [History] Cyclobenzaprine HCl 10 mg PO TID PRN 05/04/20 [History] Multivitamin [Multivitamins] 1 tab PO BID 05/04/20 [History] Loring-3S/DHA/Epa/Fish Oil [Loring-3 Fish Oil 1,000 mg Sfgl] 3 each PO BID 05/04/20 [History] miSOPROStoL [Misoprostol] 200 mcg PO DAILY 05/04/20 [History] oxyCODONE HCl [Oxycodone HCl] 5 - 10 mg PO Q4H PRN 05/04/20 [History] tiZANidine HCl [Tizanidine HCl] 2 mg PO TID 05/04/20 [History] Past Medical History HEENT History: Reports: Impaired Vision Cardiovascular History: Reports: Arrhythmia, Other (See Below) Other Cardiovascular History: prn po med for irr HR Gastrointestinal History: Reports: Cholelithiasis, GERD Genitourinary History: Reports: Other (See Below) Other Genitourinary History: cyst on right kidney Musculoskeletal History: Reports: Arthritis Psychiatric History: Reports: Depression Hematologic History: Reports: Anemia - Infectious Disease History Infectious Disease History: Reports: Chicken Pox, Measles, MRSA, Mumps, Rubella, Shingles - Past Surgical History HEENT Surgical History: Reports: Eye Surgery, Other (See Below) GI Surgical History: Reports: Appendectomy, Bariatric Procedure, Cholecystectomy Social & Family History - Family History Family Medical History: No Pertinent Family History - Caffeine Use Caffeine Use: Reports: Coffee ED ROS GENERAL - Review of Systems Review Of Systems: See Below Constitutional: Reports: No Symptoms. Denies: Fever, Chills, Malaise, Weakness, Diaphoresis Respiratory: Reports: No Symptoms Cardiovascular: Reports: No Symptoms Endocrine: Reports: No Symptoms GI/Abdominal: Reports: No Symptoms : Reports: No Symptoms Musculoskeletal: Reports: No Symptoms Skin: Reports: No Symptoms Neurological: Reports: Confusion. Denies: Headache, Numbness, Paresthesia, Pre- Existing Deficit, Trouble Speaking, Difficulty Walking, Gait Disturbance Psychiatric: Reports: No Symptoms Hematologic/Lymphatic: Reports: No Symptoms Immunologic: Reports: No Symptoms - Physical Exam Exam: See Below Exam Limited By: Altered Mental Status General Appearance: Alert, Anxious Eye Exam: Bilateral Eye: EOMI, PERRL Throat/Mouth: Normal Inspection, Normal Lips, Normal Teeth, Normal Gums, Normal Oropharynx, Normal Voice, No Airway Compromise Head Exam: Atraumatic, Normocephalic Neck: Normal Inspection, Supple, Non-Tender, Full Range of Motion Respiratory/Chest: No Respiratory Distress, Lungs Clear, Normal Breath Sounds, No Accessory Muscle Use, Chest Non-Tender Cardiovascular: Normal Peripheral Pulses, Regular Rate, Rhythm, No Edema, No Gallop, No JVD, No Murmur, No Rub GI/Abdominal: Normal Bowel Sounds, Soft, Non-Tender, No Organomegaly, No Distention, No Abnormal Bruit, No Mass Neuro Exam (Abbreviated): Alert, CN II-XII Intact, Normal Cognition, Normal Gait, No Motor/Sensory Deficits Extremities: Normal Inspection, Normal Range of Motion, Non-Tender, No Pedal Edema, Normal Capillary Refill Psychiatric: Anxious Skin Exam: Warm, Dry, Intact, Normal Color, No Rash Course - Vital Signs Last Recorded V/S: Last Vital Signs Temp 37.2 C 05/04/20 16:04 Pulse 96 05/04/20 16:04 Resp 17 05/04/20 16:04 BP 114/47 L 05/04/20 16:04 Pulse Ox 100 05/04/20 16:04 - Orders/Labs/Meds Orders: Active Orders 24 hr Category Date Time Status Peripheral IV Care [RC] . DIRECTED Care 05/04/20 15:50 Active CORONAVIRUS COVID-19 RAPID [MOLEC] Stat Lab 05/04/20 17:38 Ordered Sodium Chloride 0.9% [Normal Saline] 50 ml Med 05/04/20 16:45 Active IV ASDIRECTED Sodium Chloride 0.9% [Saline Flush] Med 05/04/20 15:49 Active 10 ml FLUSH Q8HR PRN Peripheral IV Insertion Adult [OM.PC] Routine Oth 05/04/20 15:49 Ordered Medication Orders Sodium Chloride (Normal Saline) 50 mls @ 200 mls/min IV ASDIRECTED [facility] Last Admin: 05/04/20 17:28 Dose: 200 mls/min Documented by: ZOIE Sodium Chloride (Saline Flush) 10 ml FLUSH Q8HR PRN PRN Reason: keep vein open Labs: Laboratory Tests 05/04/20 05/04/20 05/04/20 Range/Units 16:05 16:05 16:05 WBC 10.47 H (5.00-10.00) 10^3/uL RBC 3.15 L (3.80-5.50) 10^6/uL Hgb 9.6 L (12.0-16.0) g/dL Hct 29.2 L (37.0-47.0) % MCV 92.7 H D (82.0-92.0) fL MCH 30.5 (27.0-31.0) pg MCHC 32.9 (32.0-36.0) g/dL RDW 13.3 (11.5-14.5) % Plt Count 355 (150-400) 10^3/uL MPV 8.6 (7.4-10.4) fL Immature Gran % (Auto) 1.0 (0.0-5.0) % Neut % (Auto) 77.4 H (50.0-70.0) % Lymph % (Auto) 10.7 L (20.0-40.0) % [place] % (Auto) 7.2 (2.0-8.0) % Eos % (Auto) 3.2 H (1.0-3.0) % Baso % (Auto) 0.5 (0.0-1.0) % Neut # (Auto) 8.12 H (2.50-7.00) 10^3/uL Lymph # (Auto) 1.12 (1.00-4.00) 10^3/uL [place] # (Auto) 0.75 (0.10-0.80) 10^3/uL Eos # (Auto) 0.33 H (0.10-0.30) 10^3/uL Baso # (Auto) 0.05 (0.00-0.10) 10^3/uL Immature Gran # (Auto) 0.10 (0.00-0.50) 10^3/uL Sodium 133 L D (136-145) mmol/L Potassium 3.9 (3.3-5.3) mmol/L Chloride 94 L D (98-115) mmol/L Carbon Dioxide 24.1 (21.0-32.0) mmol/L Anion Gap 18.8 H (5-15) mmol/L BUN 11 (6-25) mg/dL Creatinine 0.63 (0.51-1.17) mg/dL Est Cr Clr Drug Dosing 86.21 mL/min Estimated GFR (MDRD) > 60 mL/min Glucose 116 H (75 - 99) mg/dL Calcium 8.8 (8.7-10.3) mg/dL Total Bilirubin 0.7 (0.2-1.0) mg/dL AST 24 (15-37) U/L ALT 17 (12-78) U/L Alkaline Phosphatase 82 (46-116) IU/L Ammonia 5 L (11-32) umol/L Total Protein 6.3 L (6.4-8.2) g/dL Albumin 2.48 L (3.00-4.80) g/dL Lipase 54 L (73-393) U/L Specimen Type Urine Color (YELLOW) Urine Appearance (CLEAR) Urine pH (5.0-9.0) Ur Specific [place] (1.005-1.030) Urine Protein (NEGATIVE) mg/dL Urine Glucose (UA) (NEGATIVE) mg/dL Urine Ketones (NEGATIVE) mg/dL Urine Occult Blood (NEGATIVE) Urine Nitrite (NEGATIVE) Urine Bilirubin (NEGATIVE) Urine Urobilinogen (0.2-1.0) E.U./dL Ur Leukocyte Esterase (NEGATIVE) Urine RBC (0-5) /HPF Urine WBC (0-5) /HPF Ur Epithelial Cells /LPF Urine Bacteria (NONE TO FEW) /HPF 05/04/20 Range/Units 17:03 WBC (5.00-10.00) 10^3/uL RBC (3.80-5.50) 10^6/uL Hgb (12.0-16.0) g/dL Hct (37.0-47.0) % MCV (82.0-92.0) fL MCH (27.0-31.0) pg MCHC (32.0-36.0) g/dL RDW (11.5-14.5) % Plt Count (150-400) 10^3/uL MPV (7.4-10.4) fL Immature Gran % (Auto) (0.0-5.0) % Neut % (Auto) (50.0-70.0) % Lymph % (Auto) (20.0-40.0) % [place] % (Auto) (2.0-8.0) % Eos % (Auto) (1.0-3.0) % Baso % (Auto) (0.0-1.0) % Neut # (Auto) (2.50-7.00) 10^3/uL Lymph # (Auto) (1.00-4.00) 10^3/uL [place] # (Auto) (0.10-0.80) 10^3/uL Eos # (Auto) (0.10-0.30) 10^3/uL Baso # (Auto) (0.00-0.10) 10^3/uL Immature Gran # (Auto) (0.00-0.50) 10^3/uL Sodium (136-145) mmol/L Potassium (3.3-5.3) mmol/L Chloride (98-115) mmol/L Carbon Dioxide (21.0-32.0) mmol/L Anion Gap (5-15) mmol/L BUN (6-25) mg/dL Creatinine (0.51-1.17) mg/dL Est Cr Clr Drug Dosing mL/min Estimated GFR (MDRD) mL/min Glucose (75 - 99) mg/dL Calcium (8.7-10.3) mg/dL Total Bilirubin (0.2-1.0) mg/dL AST (15-37) U/L ALT (12-78) U/L Alkaline Phosphatase (46-116) IU/L Ammonia (11-32) umol/L Total Protein (6.4-8.2) g/dL Albumin (3.00-4.80) g/dL Lipase (73-393) U/L Specimen Type Urincath Urine Color Yellow (YELLOW) Urine Appearance Slightly cloudy H (CLEAR) Urine pH >= 9.0 (5.0-9.0) Ur Specific [place] 1.015 (1.005-1.030) Urine Protein 30 H (NEGATIVE) mg/dL Urine Glucose (UA) Negative (NEGATIVE) mg/dL Urine Ketones 80 H (NEGATIVE) mg/dL Urine Occult Blood Trace-intact H (NEGATIVE) Urine Nitrite Negative (NEGATIVE) Urine Bilirubin Negative (NEGATIVE) Urine Urobilinogen 4.0 H (0.2-1.0) E.U./dL Ur Leukocyte Esterase Small H (NEGATIVE) Urine RBC 0-5 (0-5) /HPF Urine WBC >100 H (0-5) /HPF Ur Epithelial Cells Few /LPF Urine Bacteria Few (NONE TO FEW) /HPF Meds: Medications Generic Name Dose Route Start Last Admin Trade Name Frejosephine PRN Reason Stop Dose Admin Sodium Chloride 50 mls @ 200 mls/min 05/04/20 16:45 05/04/20 17:28 Normal Saline IV 200 mls/min ASDIRECTED GREGORY Administration Sodium Chloride 10 ml 05/04/20 15:49 Saline Flush FLUSH Q8HR PRN keep vein open Discontinued Medications Generic Name Dose Route Start Last Admin Trade Name Frejosephine PRN Reason Stop Dose Admin Ceftriaxone Sodium 1 gm 05/04/20 17:31 Rocephin IVPUSH 05/04/20 17:32 ONETIME ONE Hydromorphone HCl 1 mg 05/04/20 16:32 05/04/20 16:35 Dilaudid IVPUSH 05/04/20 16:33 1 mg ONETIME ONE Administration Hydromorphone HCl Confirm 05/04/20 16:34 05/04/20 17:34 Dilaudid Administered 05/04/20 16:35 Not Given Dose 1 mg .ROUTE .STK-MED ONE Sodium Chloride 1,000 mls @ 999 mls/hr 05/04/20 15:49 05/04/20 16:32 Normal Saline IV 05/04/20 16:49 999 mls/hr .BOLUS ONE Administration Iopamidol 100 ml 05/04/20 16:38 05/04/20 17:28 Isovue-370 (76%) IV 05/04/20 16:39 100 ml ONETIME ONE Administration Ondansetron HCl 4 mg 05/04/20 16:32 05/04/20 17:33 Zofran IVPUSH 05/04/20 16:33 4 mg ONETIME ONE Administration - Radiology Interpretation Free Text/Narrative:: CT HEAD- NAD CT LUMBAR-INDETERMINATE CXR- Departure - Departure Time of Disposition: 17:48 Disposition: Admitted As Inpatient 68 Condition: Fair Clinical Impression: Confusion, Fusion of lumbar spine UTI (urinary tract infection) Qualifiers: Urinary tract infection type: acute cystitis Hematuria presence: without hematuria Qualified Code(s): N30.00 - Acute cystitis without hematuria - Discharge Information Referrals: Theron Monterroso MD [Primary Care Provider] - Forms: ED Department Discharge Sepsis Event Note (ED) - Focused Exam Vital Signs: Vital Signs Temp Pulse Resp BP Pulse Ox 05/04/20 16:04 37.2 C 96 17 114/47 L 100 - My Orders Last 24 Hours: My Active Orders 05/04/20 15:49 Sodium Chloride 0.9% [Saline Flush] 10 ml FLUSH Q8HR PRN Peripheral IV Insertion Adult [OM.PC] Routine 05/04/20 15:50 Peripheral IV Care [RC] . DIRECTED 05/04/20 16:45 Sodium Chloride 0.9% [Normal Saline] 50 ml IV ASDIRECTED 05/04/20 17:38 CORONAVIRUS COVID-19 RAPID [MOLEC] Stat - Assessment/Plan Last 24 Hours: My Active Orders 05/04/20 15:49 Sodium Chloride 0.9% [Saline Flush] 10 ml FLUSH Q8HR PRN Peripheral IV Insertion Adult [OM.PC] Routine 05/04/20 15:50 Peripheral IV Care [RC] . DIRECTED 05/04/20 16:45 Sodium Chloride 0.9% [Normal Saline] 50 ml IV ASDIRECTED 05/04/20 17:38 CORONAVIRUS COVID-19 RAPID [MOLEC] Stat Assessment:: 1. CONFUSION-RESOLVED 2. UTI 3. LOW BACK PAIN S/P LUMBAR FUSION Plan: 1. ADMIT TO MEDICINE- GEORGE DEJESUS 2. ROCEPHIN 1G IV QD 3. URINE CULTURE AND SENSITIVITY 4. NS@125CC/HR DUE TO KETONES IN URINE AND SUSPECTED DEHYDRATION DUE TO POOR PO INTAKE
[2020-05-04 16:30] LABS: ANION GAP 18.8 mmol/L (5-15); CHLORIDE,CL 94 mmol/L (98-115); SODIUM,NA 133 mmol/L (136-145)
[2020-05-04] MEDS ORDERED: Ondansetron 4 MG/2 ML SDV IVPUSH ONE (16:32)
[2020-05-04] MEDS ORDERED: HYDROmorphone 1 MG/ML Syringe IVPUSH ONE (16:32)
[2020-05-04] MEDS ORDERED: HYDROmorphone 1 MG/ML Syringe ONE (16:34)
--- NOTE | 2020-05-04 16:36 | CT ---
[id number] CT/CT Head WO IV EXAM: NONCONTRAST HEAD CT INDICATION: CONFUSION. COMPARISON: None. DISCUSSION: The ventricles and sulci are normal in size and configuration. Mild multifocal white matter hypoattenuation is nonspecific, but generally ascribed to chronic small vessel ischemia. No mass effect or midline shift. No acute hemorrhage or extra-axial fluid collection. No acute territorial infarct is identified. Mild to moderate scattered paranasal sinus mucosal thickening. IMPRESSION: 1. No acute intracranial findings. Guido Aguilera MD 05/04/20 [id number] Thank you for allowing us to participate in the care of your patient.
--- NOTE | 2020-05-04 16:37 | CR ---
[id number] RAD/RAD Chest PA or AP 1V EXAM: FRONTAL CHEST INDICATION: CONFUSION. COMPARISON: None. DISCUSSION: Mild bilateral infiltrates and/or atelectasis in the mid and lower lungs bilaterally. Multiple surgical clips overlie the gastroesophageal junction. Normal heart size. No effusions. IMPRESSION: 1. Mild scattered bilateral atelectasis and/or infiltrates. Guido Aguilera MD 05/04/20 [id number] Thank you for allowing us to participate in the care of your patient.
[2020-05-04] MEDS ORDERED: Iopamidol 755 Mg/ML 100 ML Bottle IV ONE (16:38)
[2020-05-04] MEDS ORDERED: Sodium Chloride 0.9% 50 ML IV SCH (16:45)
--- NOTE | 2020-05-04 17:24 | CT ---
[id number] CT/CT Lumbar Spine W IV Exam: CT Lumbar Spine W IV Clinical Data: SUSPECTED EPIDURAL ABSCESS COMPARISON: NO PREVIOUS SIMILAR EXAM IS AVAILABLE FINDINGS: Surgical changes are seen in the lower lumbar spine There is air at the site of surgery Whether or not there is any epidural abscess is absolutely indeterminate based on this exam alone An epidural abscess is not excluded at all Infectious osteomyelitis discitis is also not excluded at all MRI or CT myelography may be needed for more definitive evaluation Empiric treatment of the patient until further evaluation is suggested IMPRESSION: F OUR LEVEL RECENT SURGICAL CHANGES AIR AT SITE OF SURGERY STREAK ARTIFACT RELATED TO METAL FROM SURGICAL INTERVENTION CT MYELOGRAM OR MRI WOULD BE NEEDED FOR FURTHER EVALUATION MRI ALSO WOULD SUFFER FROM ARTIFACT MAY CT MYELOGRAPHY NEUROSURGICAL OR ORTHOPEDIC SURGICAL OPINION WOULD BE HELPFUL Nilton Redmond MD 05/04/20 [id number] Thank you for allowing us to participate in the care of your patient.
[2020-05-04] MEDS ORDERED: cefTRIAXone 1 GM Vial IVPUSH ONE (17:31)
[2020-05-04] MEDS ORDERED: Metoprolol Tartrate 25 MG Tab PO PRN (18:49)
[2020-05-04] MEDS ORDERED: OXYCODONE HCL 5 MG PO PRN (18:49)
[2020-05-04] MEDS ORDERED: Acetaminophen 650 MG Tab.ER PO PRN (18:49)
[2020-05-04] MEDS ORDERED: Ondansetron 4 MG Tab.DIS PO PRN (18:59)
[2020-05-04] MEDS ORDERED: oxyCODONE 5 MG Tab PO PRN (19:55)
[2020-05-04] MEDS: oxyCODONE 5 MG Tab PO PRN (20:14)
[2020-05-05] MEDS: oxyCODONE 5 MG Tab PO PRN ×4 (03:42→23:38)
[2020-05-05 08:38] LABS: ANION GAP 14.6 mmol/L (5-15); CHLORIDE,CL 102 mmol/L (98-115); SODIUM,NA 141 mmol/L (136-145)
[2020-05-05] MEDS: Venlafaxine 37.5 MG Cap.ER PO SCH (08:41)
[2020-05-05] MEDS: Misoprostol 100 MCG Tab PO SCH (08:41)
--- NOTE | 2020-05-05 10:45 | PCM.HP.2 ---
H&P History of Present Illness - General Date of Service: 05/05/20 Admit Problem/Dx: Admission Diagnosis/Problem Admission Diagnosis/Problem UTI (urinary tract infection) due to urinary indwelling catheter Source of Information: Patient, Old Records, Provider, RN History Limitations: Reports: No Limitations Lower Back Pain Score (Numeric/FACES): 8 - Related Data Allergies/Adverse Reactions: Allergies Allergy/AdvReac Type Severity Reaction Status Date / Time Sulfa (Sulfonamide Allergy Rash Verified 05/04/20 16:16 Antibiotics) sulfamethoxazole Allergy Rash Verified 05/04/20 16:16 [From Bactrim] Tetracyclines Allergy Difficulty Verified 05/04/20 16:16 Breathing trimethoprim [From Bactrim] Allergy Rash Verified 05/04/20 16:16 Home Medications: Home Meds Metoprolol Tartrate [Lopressor] 25 mg PO BID PRN 07/26/15 [History] atorvaSTATin [Lipitor] 10 mg PO DAILY 07/26/15 [History] Venlafaxine HCl [Venlafaxine ER] 75 mg PO DAILY 06/26/18 [History] Acetaminophen [Tylenol Arthritis Pain] 650 mg PO Q6H PRN 05/04/20 [History] Ascorbic Acid [C-500] 500 mg PO DAILY 05/04/20 [History] Cholecalciferol (Vitamin D3) [Vitamin D3] 2,000 unit PO DAILY 05/04/20 [History] Cyanocobalamin (Vitamin B-12) [Vitamin B-12] 1,000 mcg IM ASDIRECTED 05/04/20 [History] Cyclobenzaprine HCl 10 mg PO TID PRN 05/04/20 [History] Multivitamin [Multivitamins] 1 tab PO BID 05/04/20 [History] [place]ell-3S/DHA/Epa/Fish Oil [Sartell-3 Fish Oil 1,000 mg Sfgl] 3 each PO BID 0 [History] miSOPROStoL [Misoprostol] 200 mcg PO DAILY 05/04/20 [History] oxyCODONE 5 - 10 mg PO Q4H PRN 05/04/20 [History] tiZANidine HCl [Tizanidine HCl] 2 mg PO TID 05/04/20 [History] Past Medical History HEENT History: Reports: Impaired Vision Cardiovascular History: Reports: Arrhythmia, Other (See Below) Other Cardiovascular History: prn po med for irr HR Gastrointestinal History: Reports: Cholelithiasis, GERD Genitourinary History: Reports: UTI, Recurrent, Other (See Below) Other Genitourinary History: cyst on right kidney [employer] MANAGER History: Reports: Musculoskeletal History: Reports: Arthritis Neurological History: Reports: None Psychiatric History: Reports: Anxiety, Depression Hematologic History: Reports: Anemia, Blood Transfusion(s), Iron Deficiency - Infectious Disease History Infectious Disease History: Reports: Chicken Pox, Measles, Mumps, Rubella, Shingles - Past Surgical History HEENT Surgical History: Reports: Eye Surgery, Tonsillectomy, Other (See Below) Other HEENT Surgeries/Procedures: had plugs placed in tear ducts for dry eye GI Surgical History: Reports: Appendectomy, Bariatric Procedure, Cholecystectomy, Colonoscopy, Hernia Repair/Other Other GI Surgeries/Procedures: stomach removal for mass - not cancerous - has only a sml portion of her stomach left Female Surgical History: Reports: None Neurological Surgical History: Reports: Lumbar Spine Other Neurological Surgeries/Procedures: fusion lumbar thoracic spine (bilateral) Musculoskeletal Surgical History: Reports: Other (See Below) Other Musculoskeletal Surgeries/Procedures:: right foot lapidus ackerman osteotomy, achilies lengthening Social & Family History - Family History Family Medical History: No Pertinent Family History - Tobacco Use Tobacco Use Status *Q: Never Tobacco User - Caffeine Use Caffeine Use: Reports: Coffee, Soda - Recreational Drug Use Recreational Drug Use: No H&P Review of Systems - Review of Systems: Review Of Systems: See Below General: Reports: No Symptoms HEENT: Reports: No Symptoms Pulmonary: Reports: No Symptoms Cardiovascular: Reports: No Symptoms Gastrointestinal: Reports: Constipation Genitourinary: Reports: Retention (needed freq caths during recent hospitalization). Denies: Dysuria, Burning, Pain, Urgency Musculoskeletal: Reports: Back Pain. Denies: Joint Swelling Skin: Reports: Wound Psychiatric: Denies: Confusion Neurological: Denies: Dizziness, Headache, Numbness, Paresthesia, Pre-Existing Deficit, Difficulty Walking, Weakness, Change in Speech Hematologic/Lymphatic: Reports: Anemia Immunologic: Reports: No Symptoms Exam - Exam Exam: See Below - Vital Signs Vital Signs: Last Vital Signs Temp 97.8 F 05/05/20 06:01 Pulse 71 05/05/20 06:01 Resp 18 05/05/20 06:01 BP 111/60 05/05/20 06:01 Pulse Ox 95 05/05/20 06:01 Weight: 178 lb - Exam Quality Assessment: No: Supplemental Oxygen, Urinary Catheter, DVT Prophylaxis General: Alert, Oriented, Mild Distress HEENT: Conjunctiva Clear, Mucosa Moist & [place] Neck: Supple Lungs: Clear to Auscultation, Normal Respiratory Effort Cardiovascular: Regular Rate, Regular Rhythm GI/Abdominal Exam: Normal Bowel Sounds, Soft, No Distention Back Exam: No: CVA Tenderness (L), CVA Tenderness (R) Extremities: No Pedal Edema, Normal Capillary Refill Peripheral Pulses: 2+: Radial (L), Radial (R) Skin: Incision Neurological: Strength Equal Bilateral, Normal Speech, Normal Tone, Sensation Intact. No: Focal Deficit, Reflexes Unequal, Abnormal Gait Neuro Extensive - Mental Status: Alert, Oriented x3, Normal Cognition, Memory Loss-Recent Events Neuro Extensive - Motor, Sensory, Reflexes: CN II-XII Intact, Abn 2 Pt Discrimination. No: Tongue Deviation (L), Tongue Deviation (R), Dysarthria, Receptive Aphasia, Expressive Aphasia, Facial Palsy w Forehead, Hemeplagia (R), Hemeplagia (L), Pronator Drift (R), Pronator Drift (L), Abnormal Finger to Nose, Abnormal Sensation, Abnormal Motor Psychiatric: Alert, Labile Mood. No: Depressed, Agitated - Patient Data Lab Results Last 24 hrs: Laboratory Results - last 24 hr 05/04/20 05/04/20 05/04/20 Range/Units 16:05 16:05 16:05 WBC 10.47 H (5.00-10.00) 10^3/uL RBC 3.15 L (3.80-5.50) 10^6/uL Hgb 9.6 L (12.0-16.0) g/dL Hct 29.2 L (37.0-47.0) % MCV 92.7 H D (82.0-92.0) fL MCH 30.5 (27.0-31.0) pg MCHC 32.9 (32.0-36.0) g/dL RDW 13.3 (11.5-14.5) % Plt Count 355 (150-400) 10^3/uL MPV 8.6 (7.4-10.4) fL Immature Gran % (Auto) 1.0 (0.0-5.0) % Neut % (Auto) 77.4 H (50.0-70.0) % Lymph % (Auto) 10.7 L (20.0-40.0) % [place] % (Auto) 7.2 (2.0-8.0) % Eos % (Auto) 3.2 H (1.0-3.0) % Baso % (Auto) 0.5 (0.0-1.0) % Neut # (Auto) 8.12 H (2.50-7.00) 10^3/uL Lymph # (Auto) 1.12 (1.00-4.00) 10^3/uL [place] # (Auto) 0.75 (0.10-0.80) 10^3/uL Eos # (Auto) 0.33 H (0.10-0.30) 10^3/uL Baso # (Auto) 0.05 (0.00-0.10) 10^3/uL Immature Gran # (Auto) 0.10 (0.00-0.50) 10^3/uL Sodium 133 L D (136-145) mmol/L Potassium 3.9 (3.3-5.3) mmol/L Chloride 94 L D (98-115) mmol/L Carbon Dioxide 24.1 (21.0-32.0) mmol/L Anion Gap 18.8 H (5-15) mmol/L BUN 11 (6-25) mg/dL Creatinine 0.63 (0.51-1.17) mg/dL Est Cr Clr Drug Dosing 86.21 mL/min Estimated GFR (MDRD) > 60 mL/min Glucose 116 H (75 - 99) mg/dL Calcium 8.8 (8.7-10.3) mg/dL Total Bilirubin 0.7 (0.2-1.0) mg/dL AST 24 (15-37) U/L ALT 17 (12-78) U/L Alkaline Phosphatase 82 (46-116) IU/L Ammonia 5 L (11-32) umol/L Total Protein 6.3 L (6.4-8.2) g/dL Albumin 2.48 L (3.00-4.80) g/dL Lipase 54 L (73-393) U/L Specimen Type Urine Color (YELLOW) Urine Appearance (CLEAR) Urine pH (5.0-9.0) Ur Specific Velpen (1.005-1.030) Urine Protein (NEGATIVE) mg/dL Urine Glucose (UA) (NEGATIVE) mg/dL Urine Ketones (NEGATIVE) mg/dL Urine Occult Blood (NEGATIVE) Urine Nitrite (NEGATIVE) Urine Bilirubin (NEGATIVE) Urine Urobilinogen (0.2-1.0) E.U./dL Ur Leukocyte Esterase (NEGATIVE) Urine RBC (0-5) /HPF Urine WBC (0-5) /HPF Ur Epithelial Cells /LPF Urine Bacteria (NONE TO FEW) /HPF SARS CoV-2 RNA Rapid SURAJ (NEGATIVE) 05/04/20 05/04/20 05/05/20 Range/Units 17:03 17:38 07:25 WBC 8.27 (5.00-10.00) 10^3/uL RBC 2.97 L (3.80-5.50) 10^6/uL Hgb 9.1 L (12.0-16.0) g/dL Hct 28.3 L (37.0-47.0) % MCV 95.3 H (82.0-92.0) fL MCH 30.6 (27.0-31.0) pg MCHC 32.2 (32.0-36.0) g/dL RDW 13.3 (11.5-14.5) % Plt Count 330 (150-400) 10^3/uL MPV 8.3 (7.4-10.4) fL Immature Gran % (Auto) 1.0 (0.0-5.0) % Neut % (Auto) 70.0 (50.0-70.0) % Lymph % (Auto) 15.4 L (20.0-40.0) % [place] % (Auto) 6.4 (2.0-8.0) % Eos % (Auto) 6.7 H (1.0-3.0) % Baso % (Auto) 0.5 (0.0-1.0) % Neut # (Auto) 5.80 (2.50-7.00) 10^3/uL Lymph # (Auto) 1.27 (1.00-4.00) 10^3/uL [place] # (Auto) 0.53 (0.10-0.80) 10^3/uL Eos # (Auto) 0.55 H (0.10-0.30) 10^3/uL Baso # (Auto) 0.04 (0.00-0.10) 10^3/uL Immature Gran # (Auto) 0.08 (0.00-0.50) 10^3/uL Sodium (136-145) mmol/L Potassium (3.3-5.3) mmol/L Chloride (98-115) mmol/L Carbon Dioxide (21.0-32.0) mmol/L Anion Gap (5-15) mmol/L BUN (6-25) mg/dL Creatinine (0.51-1.17) mg/dL Est Cr Clr Drug Dosing mL/min Estimated GFR (MDRD) mL/min Glucose (75 - 99) mg/dL Calcium (8.7-10.3) mg/dL Total Bilirubin (0.2-1.0) mg/dL AST (15-37) U/L ALT (12-78) U/L Alkaline Phosphatase (46-116) IU/L Ammonia (11-32) umol/L Total Protein (6.4-8.2) g/dL Albumin (3.00-4.80) g/dL Lipase (73-393) U/L Specimen Type Urincath Urine Color Yellow (YELLOW) Urine Appearance Slightly cloudy H (CLEAR) Urine pH >= 9.0 (5.0-9.0) Ur Specific Velpen 1.015 (1.005-1.030) Urine Protein 30 H (NEGATIVE) mg/dL Urine Glucose (UA) Negative (NEGATIVE) mg/dL Urine Ketones 80 H (NEGATIVE) mg/dL Urine Occult Blood Trace-intact H (NEGATIVE) Urine Nitrite Negative (NEGATIVE) Urine Bilirubin Negative (NEGATIVE) Urine Urobilinogen 4.0 H (0.2-1.0) E.U./dL Ur Leukocyte Esterase Small H (NEGATIVE) Urine RBC 0-5 (0-5) /HPF Urine WBC >100 H (0-5) /HPF Ur Epithelial Cells Few /LPF Urine Bacteria Few (NONE TO FEW) /HPF SARS CoV-2 RNA Rapid SURAJ Negative (NEGATIVE) 05/05/20 Range/Units 07:25 WBC (5.00-10.00) 10^3/uL RBC (3.80-5.50) 10^6/uL Hgb (12.0-16.0) g/dL Hct (37.0-47.0) % MCV (82.0-92.0) fL MCH (27.0-31.0) pg MCHC (32.0-36.0) g/dL RDW (11.5-14.5) % Plt Count (150-400) 10^3/uL MPV (7.4-10.4) fL Immature Gran % (Auto) (0.0-5.0) % Neut % (Auto) (50.0-70.0) % Lymph % (Auto) (20.0-40.0) % [place] % (Auto) (2.0-8.0) % Eos % (Auto) (1.0-3.0) % Baso % (Auto) (0.0-1.0) % Neut # (Auto) (2.50-7.00) 10^3/uL Lymph # (Auto) (1.00-4.00) 10^3/uL [place] # (Auto) (0.10-0.80) 10^3/uL Eos # (Auto) (0.10-0.30) 10^3/uL Baso # (Auto) (0.00-0.10) 10^3/uL Immature Gran # (Auto) (0.00-0.50) 10^3/uL Sodium 141 (136-145) mmol/L Potassium 3.8 (3.3-5.3) mmol/L Chloride 102 (98-115) mmol/L Carbon Dioxide 28.2 (21.0-32.0) mmol/L Anion Gap 14.6 (5-15) mmol/L BUN 9 (6-25) mg/dL Creatinine (0.51-1.17) mg/dL Est Cr Clr Drug Dosing mL/min Estimated GFR (MDRD) mL/min Glucose 106 H (75 - 99) mg/dL Calcium 8.3 L (8.7-10.3) mg/dL Total Bilirubin 0.3 (0.2-1.0) mg/dL AST 16 (15-37) U/L ALT 16 (12-78) U/L Alkaline Phosphatase 75 (46-116) IU/L Ammonia (11-32) umol/L Total Protein 5.7 L (6.4-8.2) g/dL Albumin 2.23 L (3.00-4.80) g/dL Lipase (73-393) U/L Specimen Type Urine Color (YELLOW) Urine Appearance (CLEAR) Urine pH (5.0-9.0) Ur Specific [place] (1.005-1.030) Urine Protein (NEGATIVE) mg/dL Urine Glucose (UA) (NEGATIVE) mg/dL Urine Ketones (NEGATIVE) mg/dL Urine Occult Blood (NEGATIVE) Urine Nitrite (NEGATIVE) Urine Bilirubin (NEGATIVE) Urine Urobilinogen (0.2-1.0) E.U./dL Ur Leukocyte Esterase (NEGATIVE) Urine RBC (0-5) /HPF Urine WBC (0-5) /HPF Ur Epithelial Cells /LPF Urine Bacteria (NONE TO FEW) /HPF SARS CoV-2 RNA Rapid SURAJ (NEGATIVE) Result Diagrams: 05/05/20 07:25 05/05/20 07:25 Sepsis Event Note - Evaluation Sepsis Screening Result: No Definite Risk - Focused Exam Vital Signs: Vital Signs Temp Pulse Resp BP Pulse Ox 05/05/20 06:01 97.8 F 71 18 111/60 95 05/05/20 03:00 97.4 F 80 16 112/58 L 96 Problem List Initiated/Reviewed/Updated: Yes Orders Last 24hrs: Active Orders 24 hr Category Date Time Status Patient Status [ADT] Routine ADT 05/04/20 18:55 Active Patient Status [ADT] Routine ADT 05/04/20 19:24 Active Communication Order [RC] 0900,2100 Care 05/04/20 18:57 Active Neuro Check [RC] Q2H Care 05/04/20 18:58 Active Oxygen Therapy [RC] PRN Care 05/04/20 19:24 Active Peripheral IV Care [RC] . DIRECTED Care 05/04/20 15:50 Active Up With Assistance [RC] ASDIRECTED Care 05/04/20 18:55 Active VTE/DVT Education [RC] PER UNIT ROUTINE Care 05/04/20 18:55 Active Vital Signs [RC] 0300,0700,1100,1500,1900,2300 Care 05/04/20 18:55 Active COMPREHENSIVE METABOLIC PN,CMP [CHEM] AM Lab 05/05/20 07:25 Results CULTURE URINE [RM] Routine Lab 05/04/20 17:03 Received Acetaminophen [Tylenol Arthritis Pain] Med 05/04/20 18:49 Active 650 mg PO Q6H PRN Metoprolol Tartrate [Lopressor] Med 05/04/20 18:49 Active 25 mg PO BID PRN Ondansetron [Zofran ODT] Med 05/04/20 18:59 Active 4 mg PO Q6H PRN Sodium Chloride 0.9% [Normal Saline] 50 ml Med 05/04/20 16:45 Active IV ASDIRECTED Sodium Chloride 0.9% [Saline Flush] Med 05/04/20 15:49 Active 10 ml FLUSH Q8HR PRN Venlafaxine [Effexor XR] Med 05/05/20 09:00 Active 75 mg PO DAILY miSOPROStoL [Cytotec] Med 05/05/20 09:00 Active 200 mcg PO DAILY oxyCODONE Med 05/04/20 19:54 Active 5 mg PO Q4H PRN Peripheral IV Insertion Adult [OM.PC] Routine Oth 05/04/20 15:49 Ordered Resuscitation Status Routine Resus Stat 05/04/20 18:44 Ordered Medication Orders Acetaminophen (Tylenol Arthritis Pain) 650 mg PO Q6H PRN PRN Reason: Pain Last Admin: 05/04/20 23:15 Dose: 650 mg Documented by: JAVIER Cosigned by: KAREN Sodium Chloride (Normal Saline) 50 mls @ 200 mls/min IV ASDIRECTED GREGORY Last Admin: 05/04/20 17:28 Dose: 200 mls/min Documented by: ZOIE Metoprolol Tartrate (Lopressor) 25 mg PO BID PRN PRN Reason: palpitations Misoprostol (Cytotec) 200 mcg PO DAILY [facility] Last Admin: 05/05/20 08:41 Dose: 200 mcg Documented by: CE Ondansetron HCl (Zofran Odt) 4 mg PO Q6H PRN PRN Reason: Nausea/Vomiting Oxycodone HCl (Oxycodone) 5 mg PO Q4H PRN PRN Reason: Pain Last Admin: 05/05/20 09:35 Dose: 5 mg Documented by: Admin: 05/05/20 03:42 Dose: 5 mg Documented by: Admin: 05/04/20 20:14 Dose: 5 mg Documented by: KAREN Sodium Chloride (Saline Flush) 10 ml FLUSH Q8HR PRN PRN Reason: keep vein open Venlafaxine HCl (Effexor Xr) 75 mg PO DAILY GREGORY Last Admin: 05/05/20 08:41 Dose: 75 mg Documented by: CE Assessment/Plan Comment:: History of present illness Nan is a 70-year-old female that was admitted into observation through the ED last night when she presented in a confused state. She presented to the ED by POV with spouse with confusion that have began earlier that day. Patient recent spinal fusion April 27 and it had been difficult for her to manage her pain in which she takes oxycodone with tizanidine, she denies any overdose. Upon ED presentation she was able to ambulate from the vehicle to stretcher she became quite obtunded in the ED however seem to improved over time. Reent hospitalization she had no fevers chills however some constipation. She is currently in a TLSO brace. Patient required Intra-Op durotomy which was repaired therefore she had 48 hours strict bed rest postoperatively however does denote postoperative urinary retention requiring frequent catheterizations. Pertinent ED findings/work-up Lumbar CT, equivocal Chest x-ray, bilateral mild atelectasis Head CT, no acute concern WBC 10.4, neutrophils 77.4% Primary hospital problems --Suspect psychomotor impairment due to medication usage, tizanidine/oxycodone --Doubtful infectious encephalopathy/etiology however prudent to continue ABX given equivocal CT --POD#8 spinal fusion L2-S1 lumbar decompression/fusion, posterior --Constipation, Add Senna-S --Anemia, Intra-op Blood loss, ~1400mL --Atelectasis, bilateral, reduced pulmonary excursion 2/2 TLSO Chronic conditions Hyperlipidemia Overweight with hx of bypass surgery, avoid NSAIDs, on Vb12 Osteopenia, cholecalciferol Depression disorder, stable on SNRI Disposition/overall plan --Continue observation today to monitor for any further psychomotor cognitive sequela --Hold tizanidine suspect interaction with oxycodone --Aggressive ICS use due to reduced pulmonary excursion 2/2 TLSO brace --Change neuro checks to every shift --Add Senna-S --Change acetaminophen to scheduled --Ambulation in halls with TLSO brace --If ongoing improvement potential discharge this p.m - Mortality Measure Prognosis:: Good
[2020-05-05] MEDS: Acetaminophen 650 MG Tab.ER PO SCH ×3 (11:12→22:32)
[2020-05-05] MEDS: cefTRIAXone 1 GM Vial IVPUSH SCH (17:08)
[2020-05-06] MEDS: Acetaminophen 650 MG Tab.ER PO SCH ×2 (04:29→11:01)
[2020-05-06] MEDS: oxyCODONE 5 MG Tab PO PRN (04:31)
[2020-05-06] MEDS: Misoprostol 100 MCG Tab PO SCH (08:11)
[2020-05-06] MEDS: Venlafaxine 37.5 MG Cap.ER PO SCH (08:11)
[2020-05-06] MEDS ORDERED: atorvaSTATin 10 MG Tab PO SCH (09:00)
[2020-05-06] MEDS: cefTRIAXone 1 GM Vial IVPUSH SCH (11:03)
--- NOTE | 2020-05-06 11:07 | PCM.DCSUM1 ---
Discharge Summary - Hospital Course Free Text/Narrative:: Date of admission: 05/04/2020 Date of discharge: 05/06/2020 Admission diagnoses: #Psychomotor impairment due to medication usage, resolved #S/P spinal fusion L2-S1 lumbar decompression/fusion, posterior on 04/27/2020 #Constipation #Anemia, acute blood loss #Atelectasis, bilateral Discharge diagnoses: #Psychomotor impairment due to medication usage #S/P spinal fusion L2-S1 lumbar decompression/fusion, posterior on 04/27/2020 #Constipation #Anemia, acute blood loss #Atelectasis, bilateral #Hyperlipidemia #Overweight with hx of bypass surgery #Osteopenia #Depression disorder Consultations: None Procedures: None Hospital course: Nan is a 70-year-old female that was admitted into observation through the ED on 05/04/2020 when she presented in a confused state. She presented to the ED by POV with spouse with confusion that have began earlier that day. Patient recent spinal fusion 04/27/2020 and it had been difficult for her to manage her pain in which she takes oxycodone with tizanidine, she denies any overdose. Upon ED presentation she was able to ambulate from the vehicle to stretcher she became quite obtunded in the ED however seem to improved over time. Recent hospitalization she had no fevers chills however some constipation. She is currently in a TLSO brace. Patient required Intra-Op durotomy which was repaired therefore she had 48 hours strict bed rest postoperatively however does denote postoperative urinary retention requiring frequent catheterizations. Pertinent ED findings/work-up Lumbar CT, equivocal Chest x-ray, bilateral mild atelectasis Head CT, no acute concern WBC 10.4, neutrophils 77.4% 05/06/2020: No overnight concerns noted by patient or staff. She has been up ambulating in the toure with walker and tolerated well. Appetite has been less, but she has been eating without nausea. No bowel movement since admission. Will give one time dose of MOM now and add Miralax to her home regimen daily. A&O x3. No neuro deficit noted. She does have numbness/tingling in the RLE that is pre-existing since post op. Suspect confusion related to post op pain medication. Discontinue tizanidine and have scheduled Tylenol at home. She verbalizes readiness for discharge. Discharge and follow-up recommendations: - Discharge to home, self care - New medications at discharge: - Miralax 17gm daily - Follow-up with Dr. Rodriguez as previously scheduled on 05/12/2020, or sooner if concerns arise. - Discharge Data Discharge Date: 05/06/20 Discharge Disposition: Home, Self-Care 01 Condition: Good - Referral to Home Health Primary Care Physician: Theron Monterroso MD - Patient Instructions Diet: Regular Diet as Tolerated Activity: As Tolerated Showering/Bathing: May Shower - Discharge Plan *PRESCRIPTION DRUG MONITORING PROGRAM REVIEWED*: Yes *COPY OF PRESCRIPTION DRUG MONITORING REPORT IN PATIENT ALISTAIR: Yes Prescriptions/Med Rec: polyethylene glycoL 3350 [MiraLAX] 17 gm PO DAILY #30 packet Home Medications: Home Meds Metoprolol Tartrate [Lopressor] 25 mg PO BID PRN 07/26/15 [History] atorvaSTATin [Lipitor] 10 mg PO DAILY 07/26/15 [History] Venlafaxine HCl [Venlafaxine ER] 75 mg PO DAILY 06/26/18 [History] Acetaminophen [Tylenol Arthritis Pain] 650 mg PO Q6H PRN 05/04/20 [History] Ascorbic Acid [C-500] 500 mg PO DAILY 05/04/20 [History] Cholecalciferol (Vitamin D3) [Vitamin D3] 2,000 unit PO DAILY 05/04/20 [History] Cyanocobalamin (Vitamin B-12) [Vitamin B-12] 1,000 mcg IM ASDIRECTED 05/04/20 [History] Cyclobenzaprine HCl 10 mg PO TID PRN 05/04/20 [History] Multivitamin [Multivitamins] 1 tab PO BID 05/04/20 [History] [place]-3S/DHA/Epa/Fish Oil [[place]-3 Fish Oil 1,000 mg Sfgl] 3 each PO BID 05/04/20 [History] miSOPROStoL [Misoprostol] 200 mcg PO DAILY 05/04/20 [History] Docusate Sodium/Sennosides [Senna Plus] 1 tab PO BID tablet 05/06/20 [Rx] oxyCODONE 5 mg PO Q4H PRN tablet 05/06/20 [Rx] polyethylene glycoL 3350 [MiraLAX] 17 gm PO DAILY #30 packet 05/06/20 [Rx] Referrals: Theron Monterroso MD [Primary Care Provider] - (Follow up with Dr. Rodriguez as previously scheduled on 05/12/2020) - Discharge Summary/Plan Comment DC Time >30 min.: Yes - General Info Date of Service: 05/06/20 Admission Dx/Problem (Free Text: Admission Diagnosis/Problem Admission Diagnosis/Problem UTI (urinary tract infection) due to urinary indwelling catheter Subjective Update: No overnight concerns. Patient reports pain controlled. Her appetite is mildly diminished, however she does tolerate food and drink. She reports readiness for discharge. Functional Status: Reports: Pain Controlled, Tolerating Diet, Ambulating, Urinating - Review of Systems General: Reports: Fatigue, Appetite (somewhat less). Denies: Fever, Weakness, Chills HEENT: Denies: Ear Pain, Headaches, Sore Throat, Visual Changes Pulmonary: Denies: Shortness of Breath, Cough, Wheezing Cardiovascular: Denies: Chest Pain, Palpitations, Dyspnea on Exertion, Edema Gastrointestinal: Reports: Constipation, Flatus. Denies: Abdominal Pain, Diarrhea, Nausea, Vomiting Genitourinary: Denies: Dysuria, Frequency, Urgency, Hematuria Musculoskeletal: Reports: Back Pain (wearing TLSO brace), Leg Pain (right leg numb/tingle). Denies: Joint Pain, Joint Swelling Skin: Reports: Other (sugical incision). Denies: Pallor, Bruising, Rash Neurological: Denies: Confusion, Headache, Syncope, Trouble Speaking, Difficulty Walking, Weakness, Change in Speech, Gait Disturbance Psychiatric: Denies: Confusion, Depression, Anxiety - Patient Data Vitals - Most Recent: Last Vital Signs Temp 36.6 C 05/06/20 06:48 Pulse 74 05/06/20 06:48 Resp 16 05/06/20 06:48 BP 134/73 05/06/20 06:48 Pulse Ox 98 05/06/20 06:48 Weight - Most Recent: 80.739 kg I&O - Last 24 hours: Intake & Output 05/05/20 05/06/20 05/06/20 22:59 06:59 14:59 Intake Total 240 300 Balance 240 300 Lab Results - Last 24 hrs: Laboratory Results - last 24 hr 05/05/20 Range/Units 07:25 Creatinine 0.61 (0.51-1.17) mg/dL Est Cr Clr Drug Dosing 89.04 mL/min Estimated GFR (MDRD) > 60 mL/min Med Orders - Current: Current Medications Acetaminophen (Tylenol Arthritis Pain) 650 mg PO Q6H [facility] Last Admin: 05/06/20 11:01 Dose: 650 mg Documented by: Atorvastatin Calcium (Lipitor) 10 mg PO DAILY [facility] Last Admin: 05/06/20 08:11 Dose: 10 mg Documented by: Ceftriaxone Sodium (Rocephin) 1 gm IVPUSH Q24H [facility] [place] Last Admin: 05/06/20 11:03 Dose: 1 gm Documented by: Sodium Chloride (Normal Saline) 50 mls @ 200 mls/min IV ASDIRECTED [facility] Last Admin: 05/04/20 17:28 Dose: 200 mls/min Documented by: Metoprolol Tartrate (Lopressor) 25 mg PO BID PRN PRN Reason: palpitations Misoprostol (Cytotec) 200 mcg PO DAILY [facility] Last Admin: 05/06/20 08:11 Dose: 200 mcg Documented by: Ondansetron HCl (Zofran Odt) 4 mg PO Q6H PRN PRN Reason: Nausea/Vomiting Oxycodone HCl (Oxycodone) 5 mg PO Q4H PRN PRN Reason: Pain Last Admin: 05/06/20 04:31 Dose: 5 mg Documented by: Senna/Docusate Sodium (Senna Plus) 1 tab PO BID [facility] Last Admin: 05/06/20 08:11 Dose: 1 tab Documented by: Sodium Chloride (Saline Flush) 10 ml FLUSH Q8HR PRN PRN Reason: keep vein open Venlafaxine HCl (Effexor Xr) 75 mg PO DAILY [facility] [place] Last Admin: 05/06/20 08:11 Dose: 75 mg Documented by: Discontinued Medications Acetaminophen (Tylenol Arthritis Pain) 650 mg PO Q6H PRN PRN Reason: Pain Last Admin: 05/04/20 23:15 Dose: 650 mg Documented by: Ceftriaxone Sodium (Rocephin) 1 gm IVPUSH ONETIME ONE Stop: 05/04/20 17:32 Last Admin: 05/04/20 17:44 Dose: 1 gm Documented by: Hydromorphone HCl (Dilaudid) 1 mg IVPUSH ONETIME ONE Stop: 05/04/20 16:33 Last Admin: 05/04/20 16:35 Dose: 1 mg Documented by: Hydromorphone HCl (Dilaudid) Confirm Administered Dose 1 mg .ROUTE .STK-MED ONE Stop: 05/04/20 16:35 Last Admin: 05/04/20 17:34 Dose: Not Given Documented by: Sodium Chloride (Normal Saline) 1,000 mls @ 999 mls/hr IV .BOLUS ONE Stop: 05/04/20 16:49 Last Admin: 05/04/20 16:32 Dose: 999 mls/hr Documented by: Iopamidol (Isovue-370 (76%)) 100 ml IV ONETIME ONE Stop: 05/04/20 16:39 Last Admin: 05/04/20 17:28 Dose: 100 ml Documented by: Non-Formulary Medication (Oxycodone Hcl) 5 mg PO Q4H PRN PRN Reason: Pain Ondansetron HCl (Zofran) 4 mg IVPUSH ONETIME ONE Stop: 05/04/20 16:33 Last Admin: 05/04/20 17:33 Dose: 4 mg Documented by: Oxycodone HCl (Oxycodone) 5 mg PO Q4H PRN PRN Reason: Pain - Exam Physical Findings Comments:: GENERAL: Well-appearing adult in no acute distress. Sitting up in chair. HEENT: Normocephalic, atraumatic. Conjunctiva clear. Nares patent without discharge. Mucous membranes moist, posterior pharynx unremarkable. NECK: Supple, no masses. CV: Regular rate and rhythm, no murmurs, rubs, or gallops. 2+ radial pulses. PULMONARY: Normal effort, clear to auscultation bilaterally. ABDOMEN: Positive bowel sounds, soft, nontender, nondistended. EXTREMITIES: No edema, cyanosis, or clubbing. MUSCULOSKELETAL: Moves all extremities well. NEUROLOGICAL: No obvious deficits. DERMATOLOGIC: No rashes or suspicious lesions in exposed areas. PSYCHIATRIC: Alert, interactive, appropriate affect.
[2020-05-06 11:09] VITALS: BP 119/72; PULSE 81
[2020-05-06] MEDS ORDERED: Magnesium Hydroxide 400 MG/5 ML Susp 30 ML Cup PO ONE (12:46)
== END 2020-05-06 14:25 | disposition home or self-care (01) ==
LOC: KA.ED 15:35 → KA.MS 17:49 → UNDOADMIN 17:49 → KA.MS 18:55 → INTOOBSV 18:55
PROVIDERS: ADMIT Nurse Practitioner Family; ATTEND Nurse Practitioner Family
DX: R41.843 Psychomotor deficit (principal); K59.00 Constipation, unspecified; D62 Acute posthemorrhagic anemia; J98.11 Atelectasis; E78.5 Hyperlipidemia, unspecified; E66.3 Overweight; F32.9 Major depressive disorder, single episode, unspecified; M85.80 Other specified disorders of bone density and structure, unspecified site; F41.9 Anxiety disorder, unspecified; Z20.828 Contact with and (suspected) exposure to other viral communicable diseases; Z98.1 Arthrodesis status; Z98.84 Bariatric surgery status; Z88.2 Allergy status to sulfonamides; Z88.1 Allergy status to other antibiotic agents; Z88.8 Allergy status to other drugs, medicaments and biological substances; Z79.899 Other long term (current) drug therapy; Z68.27 Body mass index [BMI] 27.0-27.9, adult; Z98.890 Other specified postprocedural states
CPT/HCPCS: 36415; 70450; 71045; 72132; 80053; 81001; 82140; 83690; 85025; 87086; 96361; 96374; 96375; 96376; 99284; 99285-25; A9270-GY; G0378; J0696; J1170; J2405; J7030; Q9967; U0002

== ENCOUNTER 2021-08-13 07:28 | Day surgery (SDC) | payer MEDICARE, OTHER ==
[~2021-08-13 07:28] MED LIST: Lactated Ringers 1,000 ML IV SCH; Sodium Chloride 0.9% 10 ML Syringe FLUSH PRN
[2021-08-13] MEDS ORDERED: Ondansetron 4 MG/2 ML SDV IV ONE (07:29)
[2021-08-13] MEDS ORDERED: Lactated Ringers 1,000 ML IV SCH (07:30)
[2021-08-13] MEDS ORDERED: Sodium Chloride 0.9% 10 ML Syringe FLUSH PRN (07:30)
[2021-08-13] MEDS ORDERED: Midazolam 1 MG/ML 2 ML SDV ONE (08:22)
[2021-08-13] MEDS ORDERED: Propofol 200 MG/20 ML SDV ONE (08:22)
[2021-08-13 13:38] VITALS: BP 132/73; PULSE 64
== END 2021-08-13 11:15 | disposition home or self-care (01) ==
LOC: KA.SDS 07:28
PROVIDERS: ATTEND Family Medicine
DX: Z12.11 Encounter for screening for malignant neoplasm of colon (principal); D12.0 Benign neoplasm of cecum; K57.30 Diverticulosis of large intestine without perforation or abscess without bleeding; E78.2 Mixed hyperlipidemia; E66.9 Obesity, unspecified; E53.8 Deficiency of other specified B group vitamins; M54.41 Lumbago with sciatica, right side; M54.42 Lumbago with sciatica, left side; F33.1 Major depressive disorder, recurrent, moderate; Z98.84 Bariatric surgery status; Z98.1 Arthrodesis status; Z68.30 Body mass index [BMI] 30.0-30.9, adult
CPT/HCPCS: 00812; J2250; J2405; J2704; J7120